=== PATIENT | female | born 1970 | race Caucasian/White ===

== ENCOUNTER 2019-02-07 21:09 | Inpatient (IN) | payer BC, MEDICAID, OTHER ==
[~2019-02-07] VITALS: Ht 167.6 cm; Wt 61.4 kg
[2019-02-07] MEDS ORDERED: HYDROcodone/acetaminophen 5mg/325mg tablet PO ONE (21:35)
[2019-02-07 21:50] LABS: URINE HCG NEGATIVE (NEG)
[2019-02-07 21:52] LABS: CLARITY,URINE CLOUDY (Clear); COLOR,URINE YELLOW (Yellow); GLUCOSE, URINE 100 mg/dl (Neg); KETONES,URINE NEGATIVE (Neg); LEUKOCYTE ESTERASE ,URINE MODERATE (Neg); NITRITES, URINE NEGATIVE (Neg); OCCULT BLOOD,URINE MODERATE (Neg); PROTEIN,URINE >=300 mg/dl (Neg); UROBILINOGEN,URINE 0.2 E.U/dL (0.2-1.0)
[2019-02-07 21:58] LABS: UA COLLECTION TYPE VOIDED
[2019-02-07 22:05] LABS: BACTERIA,URINE 3+ /HPF (Neg); MUCUS STRANDS MODERATE /LPF (Neg); SQUAMOUS EPITHELIAL CELL,UR MODERATE /LPF (FEW); WBC,URINE TNTC /HPF (0-4)
--- NOTE | 2019-02-07 22:12 | NUR ---
Patient resting on gurney comfortably
[2019-02-07 22:24] LABS: BASOPHILS % (AUTO) 0.1 % (0-1); EOSINOPHILS % (AUTO) 0.2 % (0-6); HEMATOCRIT 29.2 % (35.0-45.0); HEMOGLOBIN 9.6 g/dl (12.0-16.0); LYMPHOCYTES % (AUTO) 5.7 % (21-51); MEAN CORPUSCULAR HEMOGLOBIN 26.8 PG (27.0-31.0); MEAN CORPUSCULAR HGB CONC 32.8 g/dL (33.0-36.5); MEAN CORPUSCULAR VOLUME 81.8 FL (78-98); MEAN PLATELET VOLUME 9.5 FL (7.4-10.4); MONOCYTES # (AUTO) 0.7 X10'3 (0-0.9); MONOCYTES % (AUTO) 3.8 % (2-12); NEUTROPHILS # (AUTO) 15.5 X10'3 (1.8-7.7); NEUTROPHILS % (AUTO) 90.2 % (42-75); PLATELET COUNT 146 X10'3 (140-440); RED BLOOD COUNT 3.57 X10'6 (4.20-5.60); RED CELL DISTRIBUTION WIDTH 19.1 % (11.5-14.5); WHITE BLOOD COUNT 17.2 X10'3 (4.5-11.0)
[2019-02-07 22:33] LABS: ALANINE AMINOTRANSFERASE 26 U/L (12-78); ALBUMIN 2.7 G/DL (3.4-5.0); ALBUMIN/GLOBULIN RATIO 0.6 (1.1-1.5); ALKALINE PHOSPHATASE 112 IU/L (46-116); ANION GAP 12 (8-16); ASPARTATE AMINO TRANSFERASE 16 U/L (10-37); BILIRUBIN,TOTAL 0.3 MG/DL (0.1-1.0); BLOOD UREA NITROGEN 39 MG/DL (7-18); BUN/CREATININE RATIO 13.7 (6.6-38.0); CALCIUM 8.3 MG/DL (8.5-10.1); CHLORIDE 94 MMOL/L (99-107); CREATININE 2.84 MG/DL (0.40-0.90); GLUCOSE 159 MG/DL (70-104); LIPASE < 50 U/L (73-393); SODIUM 130 MMOL/L (135-145); TOTAL CARBON DIOXIDE 24.3 MMOL/L (24-32); eGFR 18 ML/MIN
[2019-02-07] MEDS ORDERED: ondansetron/PF 4mg/2ml inj IV ONE (22:35)
[2019-02-07] MEDS ORDERED: normal saline 1000ML IV soln IVB ONE (22:35)
[2019-02-07] MEDS ORDERED: potassium Cl 20 mEq SR tablet PO STA (22:42)
--- NOTE | 2019-02-07 23:11 | NUR ---
Patient reports pain back 10/10 abdominal, BP is low so unable to give morphine.
[2019-02-07 23:13] LABS: PLATELET ESTIMATE NORMAL
[2019-02-07 23:14] LABS: ANISOCYTOSIS 2+; ELLIPTOCYTES 1+; TARGET CELLS FEW
[2019-02-07] MEDS ORDERED: CefTRIAXone 2gm/D5W 50ml 50 ML IV ONE (23:15)
--- NOTE | 2019-02-07 23:38 | NUR ---
Patient to CT
[2019-02-07] MEDS ORDERED: normal saline 1000ML IV soln IV ONE (23:40)
[2019-02-07 23:47] LABS: URINE AMPHETAMINE SCREEN NEGATIVE (Neg); URINE BARBITUATE SCREEN NEGATIVE (Neg); URINE BENZODIAZEPINES SCREEN NEGATIVE (Neg); URINE CANNABINOID SCREEN NEGATIVE (Neg); URINE COCAINE SCREEN NEGATIVE (Neg); URINE METHADONE SCREEN NEGATIVE (Neg); URINE OPIATE SCREEN POSITIVE (Neg); URINE PHENCYCLIDINE SCREEN NEGATIVE (Neg)
[2019-02-07] MEDS: morphine 4 MG/ML inj SYRINge IV PRN (23:51)
--- NOTE | 2019-02-07 23:57 | NUR ---
Back from CT, lab at bedside for blood cultures
[2019-02-08] MEDS ORDERED: SERT100T PO (00:22)
[2019-02-08] MEDS ORDERED: LORA0.5T PO (00:22)
[2019-02-08] MEDS ORDERED: CLON0.2T PO (00:22)
[2019-02-08] MEDS: normal saline 1000ml 1,000 ML IV SCH ×3 (00:59→21:17)
[2019-02-08] MEDS ORDERED: mag hydrox/Alum hydrox/simeth 30ml oral suspension PO PRN (01:00)
[2019-02-08] MEDS ORDERED: magnesium Cl slow-release 64mg tablet PO PRN (01:00)
[2019-02-08] MEDS ORDERED: potassium CL 10mEq/100ml bag 100 ML IV PRN (01:00)
[2019-02-08] MEDS ORDERED: HYDROcodone/acetaminophen 5mg/325mg tablet PO PRN (01:00)
[2019-02-08] MEDS ORDERED: magnesium 4gm in 100ml NS 100 ML IV PRN (01:00)
[2019-02-08] MEDS ORDERED: potassium Cl 20 mEq SR tablet PO PRN ×2 (01:00)
[2019-02-08] MEDS ORDERED: morphine 2 MG/ML inj. syringe IV PRN ×2 (01:00)
[2019-02-08] MEDS ORDERED: magnesium hydroxide 30ml (MOM) UD suspension PO PRN (01:00)
[2019-02-08] MEDS ORDERED: acetaminophen 325mg tablet PO PRN (01:00)
[2019-02-08] MEDS ORDERED: magnesium 2GM in 50ml NS 50 ML IV PRN (01:00)
--- NOTE | 2019-02-08 01:53 | NUR ---
Patient in room . I have received report from CARSON Parker and had the opportunity to ask questions and assume patient care.
[2019-02-08 02:30] VITALS: BP 86/56
[2019-02-08] MEDS: acetaminophen 325mg tablet PO PRN (04:38)
--- NOTE | 2019-02-08 06:24 | NUR ---
Problems reprioritized. Patient report given, questions answered & plan of care reviewed with CARSON Orona.
--- NOTE | 2019-02-08 06:37 | NUR ---
Patient in room [facility]. I have received report from CARSON Donaldson and had the opportunity to ask questions and assume patient care.
[2019-02-08 06:38] LABS: BASOPHILS % (AUTO) 0.1 % (0-1); EOSINOPHILS % (AUTO) 0.7 % (0-6); HEMATOCRIT 26.4 % (35.0-45.0); HEMOGLOBIN 8.7 g/dl (12.0-16.0); LYMPHOCYTES # (AUTO) 0.4 X10'3 (1.1-4.8); MEAN CORPUSCULAR HEMOGLOBIN 27.2 PG (27.0-31.0); MEAN CORPUSCULAR VOLUME 82.4 FL (78-98); MEAN PLATELET VOLUME 9.6 FL (7.4-10.4); MONOCYTES # (AUTO) 0.3 X10'3 (0-0.9); MONOCYTES % (AUTO) 4.5 % (2-12); NEUTROPHILS # (AUTO) 4.9 X10'3 (1.8-7.7); NEUTROPHILS % (AUTO) 87.7 % (42-75); PLATELET COUNT 112 X10'3 (140-440); RED BLOOD COUNT 3.21 X10'6 (4.20-5.60); RED CELL DISTRIBUTION WIDTH 19.2 % (11.5-14.5); WHITE BLOOD COUNT 5.6 X10'3 (4.5-11.0)
[2019-02-08 06:48] LABS: ANION GAP 11 (8-16); BLOOD UREA NITROGEN 35 MG/DL (7-18); BUN/CREATININE RATIO 15.8 (6.6-38.0); CALCIUM 6.8 MG/DL (8.5-10.1); CHLORIDE 102 MMOL/L (99-107); CREATININE 2.22 MG/DL (0.40-0.90); GLUCOSE 88 MG/DL (70-104); SODIUM 134 MMOL/L (135-145); TOTAL CARBON DIOXIDE 21.1 MMOL/L (24-32); eGFR 24 ML/MIN
[2019-02-08 06:56] LABS: POTASSIUM 2.5 MMOL/L (3.5-5.1)
--- NOTE | 2019-02-08 06:58 | NUR ---
Paged Dr. Shields re critical K level. PAGER ID: [phone] MESSAGE: Eliseo Wagner in 340A. K of 2.5 this am. Will replace per protocol. Thanks! Tanya BYRD [phone]
[2019-02-08 07:56] LABS: ANISOCYTOSIS 2+; HYPOCHROMASIA 1+; PLATELET ESTIMATE DECREASED; TOTAL CELLS COUNTED 100
[2019-02-08] MEDS: K and/or MAG REPLACEMENT MC SCH (08:00)
[2019-02-08] MEDS: CefTRIAXone 2gm/D5W 50ml 50 ML IV SCH (08:12)
[2019-02-08 08:21] VITALS: BP 94/56
[2019-02-08] MEDS: heparin, porcine 5000 units/ml vial SQ SCH ×2 (08:24→20:28)
[2019-02-08] MEDS: lactobacillus rhamnosus 10,000 MMU CELLS/CAPSULE PO SCH ×4 (08:24→21:23)
[2019-02-08] MEDS: sertraline 50mg tablet PO SCH (08:26)
[2019-02-08] MEDS: morphine 4 MG/ML inj SYRINge IV PRN (08:27)
--- NOTE | 2019-02-08 11:48 | NUR ---
Paged Dr. Ratliff re pain management. PAGER ID: [phone] MESSAGE: Pt Keiko Wagner in 340A in severe pain, morphine not effective & b/p low. Can we try something else? Thanks! Tanya BYRD [phone]
[2019-02-08 12:00] VITALS: BP 92/72
[2019-02-08] MEDS ORDERED: NORMAL SALINE IV PRN (12:00)
[2019-02-08] MEDS ORDERED: SINCALIDE IV PRN (12:00)
--- NOTE | 2019-02-08 12:02 | NUR ---
Dr. Ratliff at bedside, new orders received for pain management, hida scan, IS, IV antibiotics.
[2019-02-08] MEDS: HYDROmorphone 1 mg/ml syringe IV PRN ×3 (12:20→23:21)
[2019-02-08] MEDS: metroNIDAZOLE-Flagyl 500mg/NS 100 ML IV SCH ×3 (12:43→23:17)
[2019-02-08] MEDS: levoFLOXACIN-Levaquin 750MG/D5 150 ML IV SCH (14:15)
[2019-02-08] MEDS: ondansetron/PF 4mg/2ml inj IV PRN (15:44)
--- NOTE | 2019-02-08 16:10 | NUR ---
Pt transported out of room to nuclear medicine.
--- NOTE | 2019-02-08 18:17 | NUR ---
Pt returned to floor.
--- NOTE | 2019-02-08 18:58 | NUR ---
Problems reprioritized. Patient report given, questions answered & plan of care reviewed with CARSON Donaldson.
--- NOTE | 2019-02-08 18:59 | NUR ---
Patient in room [facility]. I have received report from Kosta Martínez and had the opportunity to ask questions and assume patient care.
[2019-02-08 20:00] VITALS: BP 94/50
[2019-02-08] MEDS: proCHLORperazine 10 MG/2 ml inj IV PRN (20:27)
[2019-02-08] MEDS: potassium CL 10mEq/100ml bag 100 ML IV PRN ×2 (20:27→22:16)
[2019-02-08] MEDS: cloNIDine 0.1 mg tablet PO SCH ×3 (20:28→21:23)
[2019-02-09] VITALS: BP 95/59
[2019-02-09] MEDS: potassium CL 10mEq/100ml bag 100 ML IV PRN ×4 (00:24→03:55)
[2019-02-09] MEDS: normal saline 1000ml 1,000 ML IV SCH ×4 (00:50→20:50)
[2019-02-09] MEDS: HYDROmorphone 1 mg/ml syringe IV PRN ×4 (03:33→20:21)
--- NOTE | 2019-02-09 06:14 | NUR ---
Problems reprioritized. Patient report given, questions answered & plan of care reviewed with CARSON Mittal.
--- NOTE | 2019-02-09 06:30 | NUR ---
Patient in room [facility]. I have received report from CARSON Donaldson and had the opportunity to ask questions and assume patient care.
[2019-02-09] MEDS: proCHLORperazine 10 MG/2 ml inj IV PRN ×2 (07:52→20:11)
[2019-02-09 07:54] LABS: BASOPHILS % (AUTO) 0.1 % (0-1); EOSINOPHILS # (AUTO) 0.1 X10'3 (0-0.9); EOSINOPHILS % (AUTO) 0.7 % (0-6); HEMOGLOBIN 7.8 g/dl (12.0-16.0); LYMPHOCYTES # (AUTO) 0.6 X10'3 (1.1-4.8); LYMPHOCYTES % (AUTO) 3.5 % (21-51); MEAN CORPUSCULAR HEMOGLOBIN 26.8 PG (27.0-31.0); MEAN CORPUSCULAR HGB CONC 32.6 g/dL (33.0-36.5); MEAN CORPUSCULAR VOLUME 82.4 FL (78-98); MEAN PLATELET VOLUME 8.9 FL (7.4-10.4); MONOCYTES % (AUTO) 6.4 % (2-12); NEUTROPHILS # (AUTO) 14.3 X10'3 (1.8-7.7); NEUTROPHILS % (AUTO) 89.3 % (42-75); PLATELET COUNT 125 X10'3 (140-440); RED BLOOD COUNT 2.91 X10'6 (4.20-5.60)
[2019-02-09] MEDS: metroNIDAZOLE-Flagyl 500mg/NS 100 ML IV SCH ×2 (07:56→16:34)
[2019-02-09 08:00] VITALS: BP 90/35
[2019-02-09] MEDS: heparin, porcine 5000 units/ml vial SQ SCH ×2 (08:00→20:13)
[2019-02-09] MEDS: HYDROcodone/acetaminophen 10/325mg tab PO PRN (08:03)
[2019-02-09] MEDS: lactobacillus rhamnosus 10,000 MMU CELLS/CAPSULE PO SCH ×2 (08:03→21:39)
[2019-02-09] MEDS: sertraline 50mg tablet PO SCH (08:04)
[2019-02-09 08:08] LABS: ALBUMIN 1.9 G/DL (3.4-5.0); ANION GAP 11 (8-16); BLOOD UREA NITROGEN 23 MG/DL (7-18); BUN/CREATININE RATIO 16.5 (6.6-38.0); CALCIUM 7.3 MG/DL (8.5-10.1); CHLORIDE 107 MMOL/L (99-107); CREATININE 1.39 MG/DL (0.40-0.90); GLUCOSE 88 MG/DL (70-104); MAGNESIUM 1.8 MG/DL (1.5-2.4); POTASSIUM 4.4 MMOL/L (3.5-5.1); SODIUM 137 MMOL/L (135-145); TOTAL CARBON DIOXIDE 18.7 MMOL/L (24-32); eGFR 41 ML/MIN
[2019-02-09] MEDS: CefTRIAXone 2gm/D5W 50ml 50 ML IV SCH (09:15)
[2019-02-09] MEDS: levoFLOXACIN-Levaquin 750MG/D5 150 ML IV SCH (09:19)
[2019-02-09] MEDS: K and/or MAG REPLACEMENT MC SCH (09:44)
[2019-02-09 10:00] VITALS: BP 96/46
[2019-02-09 10:33] LABS: ANISOCYTOSIS 2+; PLATELET ESTIMATE DECREASED
[2019-02-09 10:36] LABS: TOTAL CELLS COUNTED 100
[2019-02-09 10:37] LABS: LARGE PLATELETS FEW
[2019-02-09 11:00] VITALS: BP 88/40
[2019-02-09 14:56] VITALS: BP 95/57
--- NOTE | 2019-02-09 17:08 | NUR ---
SBP sustaining 80-90's. Low grade fever of 100.6F this AM, other temps normal. Pt c/o weakness and abd pain. Dilaudid given x2 ad [place] given x1 with good result. Decreased appetite. Pt barely eats. Pt states she's beginning to feel better.
[2019-02-09 18:00] VITALS: BP 95/45
--- NOTE | 2019-02-09 18:18 | NUR ---
Problems reprioritized. Patient report given, questions answered & plan of care reviewed with CARSON Donaldson.
--- NOTE | 2019-02-09 18:19 | NUR ---
Patient in room [facility]. I have received report from CARSON Mittal and had the opportunity to ask questions and assume patient care.
[2019-02-09] MEDS: cloNIDine 0.1 mg tablet PO SCH (21:39)
[2019-02-10] MEDS: normal saline 1000ml 1,000 ML IV SCH
[2019-02-10 00:12] VITALS: BP 104/48
[2019-02-10] MEDS: HYDROmorphone 1 mg/ml syringe IV PRN ×2 (02:30→14:53)
[2019-02-10] MEDS: proCHLORperazine 10 MG/2 ml inj IV PRN (02:30)
[2019-02-10 04:55] LABS: BASOPHILS % (AUTO) 0.3 % (0-1); EOSINOPHILS % (AUTO) 0.2 % (0-6); HEMOGLOBIN 7.2 g/dl (12.0-16.0); LYMPHOCYTES # (AUTO) 0.7 X10'3 (1.1-4.8); LYMPHOCYTES % (AUTO) 5.4 % (21-51); MEAN CORPUSCULAR HEMOGLOBIN 27.2 PG (27.0-31.0); MEAN CORPUSCULAR HGB CONC 32.9 g/dL (33.0-36.5); MEAN CORPUSCULAR VOLUME 82.6 FL (78-98); MONOCYTES % (AUTO) 7.6 % (2-12); NEUTROPHILS % (AUTO) 86.5 % (42-75); PLATELET COUNT 147 X10'3 (140-440); RED BLOOD COUNT 2.66 X10'6 (4.20-5.60); RED CELL DISTRIBUTION WIDTH 19.7 % (11.5-14.5); WHITE BLOOD COUNT 12.7 X10'3 (4.5-11.0)
[2019-02-10 04:59] LABS: HEMATOCRIT 21.9 % (35.0-45.0)
[2019-02-10 05:35] LABS: ALBUMIN 1.7 G/DL (3.4-5.0); ANION GAP 13 (8-16); BLOOD UREA NITROGEN 14 MG/DL (7-18); CALCIUM 7.6 MG/DL (8.5-10.1); CHLORIDE 112 MMOL/L (99-107); GLUCOSE 91 MG/DL (70-104); POTASSIUM 3.8 MMOL/L (3.5-5.1); SODIUM 142 MMOL/L (135-145); TOTAL CARBON DIOXIDE 17.1 MMOL/L (24-32); eGFR 59 ML/MIN
--- NOTE | 2019-02-10 06:16 | NUR ---
Problems reprioritized. Patient report given, questions answered & plan of care reviewed with CARSON Jarvis.
--- NOTE | 2019-02-10 06:30 | NUR ---
Patient in room [facility]. I have received report from Mendoza BYRD and had the opportunity to ask questions and assume patient care.
[2019-02-10 07:25] VITALS: BP 102/43
[2019-02-10] MEDS: lactobacillus rhamnosus 10,000 MMU CELLS/CAPSULE PO SCH ×2 (08:40→20:48)
[2019-02-10] MEDS: sertraline 50mg tablet PO SCH (08:40)
[2019-02-10] MEDS: heparin, porcine 5000 units/ml vial SQ SCH (08:41)
[2019-02-10] MEDS: metroNIDAZOLE-Flagyl 500mg/NS 100 ML IV SCH ×4 (08:41→23:36)
[2019-02-10] MEDS: K and/or MAG REPLACEMENT MC SCH (08:45)
[2019-02-10 09:02] LABS: HEMOGLOBIN 7.2 g/dl (12.0-16.0); MEAN CORPUSCULAR HEMOGLOBIN 27.1 PG (27.0-31.0); MEAN CORPUSCULAR HGB CONC 32.9 g/dL (33.0-36.5); MEAN CORPUSCULAR VOLUME 82.5 FL (78-98); MEAN PLATELET VOLUME 8.6 FL (7.4-10.4); PLATELET COUNT 150 X10'3 (140-440); RED BLOOD COUNT 2.64 X10'6 (4.20-5.60); RED CELL DISTRIBUTION WIDTH 19.5 % (11.5-14.5); WHITE BLOOD COUNT 9.1 X10'3 (4.5-11.0)
[2019-02-10 09:08] LABS: HEMATOCRIT 21.8 % (35.0-45.0)
[2019-02-10] MEDS ORDERED: LEVO750T46 PO (09:18)
[2019-02-10] MEDS ORDERED: LACT1CAP26 PO (09:18)
[2019-02-10] MEDS ORDERED: METR-159 PO (09:18)
[2019-02-10 09:56] LABS: PLATELET ESTIMATE NORMAL; TOTAL CELLS COUNTED 100
[2019-02-10 09:57] LABS: ANISOCYTOSIS 2+
[2019-02-10 11:00] VITALS: BP 102/51
[2019-02-10 14:07] LABS: HEMATOCRIT 22.1 % (35.0-45.0); HEMOGLOBIN 7.2 g/dl (12.0-16.0); MEAN CORPUSCULAR HEMOGLOBIN 26.5 PG (27.0-31.0); MEAN CORPUSCULAR HGB CONC 32.7 g/dL (33.0-36.5); MEAN PLATELET VOLUME 8.1 FL (7.4-10.4); PLATELET COUNT 159 X10'3 (140-440); RED BLOOD COUNT 2.72 X10'6 (4.20-5.60); RED CELL DISTRIBUTION WIDTH 19.6 % (11.5-14.5); WHITE BLOOD COUNT 9.3 X10'3 (4.5-11.0)
[2019-02-10 14:59] LABS: FERRITIN 146 NG/ML (8-252)
[2019-02-10 15:39] LABS: % IRON SATURATION 10 % (11-46); IRON 13 UG/DL (49-151); TOTAL IRON BINDING CAPACITY 128 UG/DL (259-388)
[2019-02-10] MEDS ORDERED: VITC500T PO (16:47)
[2019-02-10] MEDS ORDERED: FERR325T28 PO (16:50)
[2019-02-10] MEDS: sodium ferric gluc complex inj 125 MG in normal saline 100ml IV soln 100 ML IV SCH (17:35)
--- NOTE | 2019-02-10 18:11 | NUR ---
Patient in room [facility]. I have received report from CARSON Jarvis and had the opportunity to ask questions and assume patient care.
[2019-02-10] MEDS: HYDROcodone/acetaminophen 10/325mg tab PO PRN ×2 (19:28→23:36)
[2019-02-10 20:00] VITALS: BP 116/67
[2019-02-10] MEDS: sodium bicarbonate 650mg tablet PO SCH (20:48)
[2019-02-10] MEDS: cloNIDine 0.1 mg tablet PO SCH (20:48)
[2019-02-11] VITALS: BP 104/53
[2019-02-11 05:03] LABS: BASOPHILS % (AUTO) 0.5 % (0-1); EOSINOPHILS # (AUTO) 0.1 X10'3 (0-0.9); EOSINOPHILS % (AUTO) 1.1 % (0-6); LYMPHOCYTES # (AUTO) 1.1 X10'3 (1.1-4.8); LYMPHOCYTES % (AUTO) 14.1 % (21-51); MEAN CORPUSCULAR HEMOGLOBIN 27.1 PG (27.0-31.0); MEAN CORPUSCULAR HGB CONC 33.4 g/dL (33.0-36.5); MEAN CORPUSCULAR VOLUME 81.3 FL (78-98); MEAN PLATELET VOLUME 8.6 FL (7.4-10.4); MONOCYTES % (AUTO) 12.9 % (2-12); NEUTROPHILS # (AUTO) 5.7 X10'3 (1.8-7.7); NEUTROPHILS % (AUTO) 71.4 % (42-75); PLATELET COUNT 171 X10'3 (140-440); RED BLOOD COUNT 2.69 X10'6 (4.20-5.60); RED CELL DISTRIBUTION WIDTH 19.1 % (11.5-14.5)
[2019-02-11 05:11] LABS: ALBUMIN 1.6 G/DL (3.4-5.0); ANION GAP 10 (8-16); BLOOD UREA NITROGEN 12 MG/DL (7-18); CHLORIDE 112 MMOL/L (99-107); GLUCOSE 130 MG/DL (70-104); MAGNESIUM 1.9 MG/DL (1.5-2.4); POTASSIUM 3.3 MMOL/L (3.5-5.1); SODIUM 143 MMOL/L (135-145); TOTAL CARBON DIOXIDE 20.9 MMOL/L (24-32)
[2019-02-11 05:27] LABS: BUN/CREATININE RATIO 15.4 (6.6-38.0); CREATININE 0.78 MG/DL (0.40-0.90); eGFR 79 ML/MIN
[2019-02-11 05:38] LABS: HEMATOCRIT 21.8 % (35.0-45.0)
[2019-02-11 05:39] LABS: HEMOGLOBIN 7.3 g/dl (12.0-16.0)
[2019-02-11 06:13] LABS: ANISOCYTOSIS 2+; PLATELET ESTIMATE NORMAL
[2019-02-11 06:14] LABS: POIKILOCYTOSIS FEW
--- NOTE | 2019-02-11 06:30 | NUR ---
Patient in room [facility]. I have received report from Ephraim BYRD and had the opportunity to ask questions and assume patient care.
--- NOTE | 2019-02-11 06:47 | NUR ---
Problems reprioritized. Patient report given, questions answered & plan of care reviewed with CARSON Jarvis.
[2019-02-11] MEDS: K and/or MAG REPLACEMENT MC SCH (08:00)
[2019-02-11] MEDS ORDERED: levoFLOXACIN-Levaquin 750MG/D5 150 ML IV SCH (08:00)
[2019-02-11 08:07] VITALS: BP 99/50
[2019-02-11] MEDS: HYDROcodone/acetaminophen 10/325mg tab PO PRN ×3 (08:25→22:43)
[2019-02-11] MEDS: lactobacillus rhamnosus 10,000 MMU CELLS/CAPSULE PO SCH ×2 (08:25→20:25)
[2019-02-11] MEDS: sertraline 50mg tablet PO SCH (08:25)
[2019-02-11] MEDS: sodium bicarbonate 650mg tablet PO SCH ×3 (08:25→20:26)
[2019-02-11] MEDS: metroNIDAZOLE-Flagyl 500mg/NS 100 ML IV SCH ×2 (08:26→15:22)
[2019-02-11] MEDS: sodium ferric gluc complex inj 125 MG in normal saline 100ml IV soln 100 ML IV SCH (09:34)
[2019-02-11 11:00] VITALS: BP 113/70
[2019-02-11] MEDS ORDERED: magnesium 4gm in 100ml NS 100 ML IV PRN (13:00)
[2019-02-11] MEDS ORDERED: potassium CL 10mEq/100ml bag 100 ML IV PRN (13:00)
[2019-02-11] MEDS ORDERED: magnesium Cl slow-release 64mg tablet PO PRN (13:00)
[2019-02-11] MEDS ORDERED: potassium Cl 20 mEq SR tablet PO PRN (13:00)
[2019-02-11] MEDS: potassium Cl 20 mEq SR tablet PO PRN ×2 (13:47→20:25)
[2019-02-11] MEDS: ondansetron/PF 4mg/2ml inj IV PRN ×2 (15:31→22:44)
[2019-02-11] MEDS: LORazepam 0.5 MG tablet PO PRN (17:56)
--- NOTE | 2019-02-11 18:00 | NUR ---
Patient in room [facility]. I have received report from Matheus BYRD and had the opportunity to ask questions and assume patient care.
--- NOTE | 2019-02-11 18:30 | NUR ---
Problems reprioritized. Patient report given, questions answered & plan of care reviewed with Chun BYRD.
[2019-02-11 20:00] VITALS: BP 94/46
[2019-02-11] MEDS: cloNIDine 0.1 mg tablet PO SCH (20:26)
[2019-02-12] VITALS: BP 91/48
[2019-02-12] MEDS: metroNIDAZOLE-Flagyl 500mg/NS 100 ML IV SCH ×2 (00:01→07:21)
[2019-02-12] MEDS: potassium Cl 20 mEq SR tablet PO PRN ×2 (02:21→07:20)
[2019-02-12] MEDS: acetaminophen 325mg tablet PO PRN (02:37)
[2019-02-12 05:13] LABS: BASOPHILS % (AUTO) 0.4 % (0-1); EOSINOPHILS # (AUTO) 0.1 X10'3 (0-0.9); EOSINOPHILS % (AUTO) 1.3 % (0-6); HEMATOCRIT 22.2 % (35.0-45.0); HEMOGLOBIN 7.4 g/dl (12.0-16.0); LYMPHOCYTES # (AUTO) 1.4 X10'3 (1.1-4.8); MEAN CORPUSCULAR HEMOGLOBIN 26.7 PG (27.0-31.0); MEAN CORPUSCULAR HGB CONC 33.4 g/dL (33.0-36.5); MEAN CORPUSCULAR VOLUME 79.9 FL (78-98); MEAN PLATELET VOLUME 8.1 FL (7.4-10.4); MONOCYTES # (AUTO) 0.9 X10'3 (0-0.9); MONOCYTES % (AUTO) 11.9 % (2-12); NEUTROPHILS # (AUTO) 5.2 X10'3 (1.8-7.7); NEUTROPHILS % (AUTO) 68.4 % (42-75); PLATELET COUNT 213 X10'3 (140-440); RED BLOOD COUNT 2.78 X10'6 (4.20-5.60); RED CELL DISTRIBUTION WIDTH 19.2 % (11.5-14.5); WHITE BLOOD COUNT 7.6 X10'3 (4.5-11.0)
[2019-02-12 05:18] LABS: ALBUMIN 1.6 G/DL (3.4-5.0); ANION GAP 7 (8-16); BLOOD UREA NITROGEN 7 MG/DL (7-18); BUN/CREATININE RATIO 9.3 (6.6-38.0); CALCIUM 7.6 MG/DL (8.5-10.1); CHLORIDE 110 MMOL/L (99-107); CREATININE 0.75 MG/DL (0.40-0.90); GLUCOSE 128 MG/DL (70-104); MAGNESIUM 1.4 MG/DL (1.5-2.4); POTASSIUM 3.4 MMOL/L (3.5-5.1); SODIUM 141 MMOL/L (135-145); TOTAL CARBON DIOXIDE 24.3 MMOL/L (24-32); eGFR 83 ML/MIN
--- NOTE | 2019-02-12 06:24 | NUR ---
Problems reprioritized. Patient report given, questions answered & plan of care reviewed with Matheus RN.
--- NOTE | 2019-02-12 06:28 | NUR ---
Patient in room [facility]. I have received report from Chun BYRD and had the opportunity to ask questions and assume patient care.
[2019-02-12 06:32] LABS: PLATELET ESTIMATE NORMAL
[2019-02-12 06:33] LABS: ANISOCYTOSIS 2+; HYPOCHROMASIA 2+; MICROCYTOSIS 1+
[2019-02-12 06:34] LABS: SCHISTOCYTES FEW
[2019-02-12] MEDS: sertraline 50mg tablet PO SCH (07:20)
[2019-02-12] MEDS: sodium bicarbonate 650mg tablet PO SCH (07:20)
[2019-02-12] MEDS: lactobacillus rhamnosus 10,000 MMU CELLS/CAPSULE PO SCH (07:21)
[2019-02-12] MEDS: LORazepam 0.5 MG tablet PO PRN (07:24)
[2019-02-12] MEDS: HYDROcodone/acetaminophen 10/325mg tab PO PRN (07:25)
[2019-02-12 08:00] VITALS: BP 90/50
[2019-02-12] MEDS: K and/or MAG REPLACEMENT MC SCH (08:00)
[2019-02-12] MEDS: sodium ferric gluc complex inj 125 MG in normal saline 100ml IV soln 100 ML IV SCH (09:09)
[2019-02-12] MEDS ORDERED: LEVO750T46 PO (09:38)
[2019-02-12] MEDS ORDERED: METR-159 PO (09:38)
[2019-02-12 11:00] VITALS: BP 93/41
--- NOTE | 2019-02-12 14:30 | NUR ---
PATIENT DISCHARGED TODAY, PATIENT EXPRESSED VERBAL UNDERSTANDING OF NEW MEDICAITONS PATIENT MEDICATIONS WERE DELIVERED BY CRAFT BEDSIDE. PATIENT SHOWED VERBAL UNDERSTANDING OF FOLLOW UP WITH PCP. PATIENT LEFT WITH ALL BELONGINGS. PATIENTS HAD TWO IV TAKEN OUT BOTH INTACT AND WHOLE UPON INSPECTION. PATIENT WAS TAKEN TO LOBBY VIA WHEEL CHAIR.
== END 2019-02-12 13:44 | disposition home or self-care (01) | DRG 720 ==
LOC: ER 21:09 → SUR 3N 02-08 01:53 → CMPBEDREQ 02-08 19:35
PROVIDERS: ADMIT Hospitalist; ATTEND Family Medicine
PROC: CF1YYZZ Planar Nuclear Medicine Imaging of Hepatobiliary System and Pancreas using Other Radionuclide (ICD-10-PCS; principal; 2019-02-08)
DX: A41.9 Sepsis, unspecified organism (principal); N17.0 Acute kidney failure with tubular necrosis; E87.2 Acidosis; N10 Acute pyelonephritis; B96.20 Unspecified Escherichia coli [E. coli] as the cause of diseases classified elsewhere; D64.9 Anemia, unspecified; F17.210 Nicotine dependence, cigarettes, uncomplicated; R65.20 Severe sepsis without septic shock; N92.1 Excessive and frequent menstruation with irregular cycle; F32.9 Major depressive disorder, single episode, unspecified; F41.9 Anxiety disorder, unspecified; Z79.899 Other long term (current) drug therapy; Z71.6 Tobacco abuse counseling
CPT/HCPCS: 36415; 74176; 76700; 78227; 80048; 80053; 80305; 81001; 81025; 82728; 83540; 83550; 83605; 83690; 83735; 84145; 85025; 85027; 85610; 87040; 87077; 87081; 87088; 87186; 96365; 96366; 96375; 99285; A9537; G0378; J0696; J0780; J1170; J1644; J1956; J2270; J2405; J2805; J2916; J3480; J3490; J7030

== ENCOUNTER 2019-03-21 00:47 | Inpatient (IN) | payer MEDICAID ==
[~2019-03-21] VITALS: Ht 172.7 cm; Wt 61.4 kg
[~2019-03-21 00:47] MED LIST: CLON0.2T PO; LACT1CAP26 PO; LEVO750T46 PO; LORA0.5T PO; METR-159 PO; SERT100T PO; VITC500T PO
[2019-03-21 01:27] LABS: BASOPHILS % (AUTO) 0.7 % (0-1); EOSINOPHILS # (AUTO) 0.1 X10'3 (0-0.9); EOSINOPHILS % (AUTO) 1.5 % (0-6); HEMATOCRIT 31.2 % (35.0-45.0); HEMOGLOBIN 10.6 g/dl (12.0-16.0); LYMPHOCYTES # (AUTO) 2.3 X10'3 (1.1-4.8); LYMPHOCYTES % (AUTO) 39.4 % (21-51); MEAN CORPUSCULAR HEMOGLOBIN 32.2 PG (27.0-31.0); MEAN CORPUSCULAR VOLUME 94.8 FL (78-98); MEAN PLATELET VOLUME 8.4 FL (7.4-10.4); MONOCYTES # (AUTO) 0.4 X10'3 (0-0.9); MONOCYTES % (AUTO) 6.3 % (2-12); NEUTROPHILS % (AUTO) 52.1 % (42-75); PLATELET COUNT 145 X10'3 (140-440); RED CELL DISTRIBUTION WIDTH 22.5 % (11.5-14.5); WHITE BLOOD COUNT 5.8 X10'3 (4.5-11.0)
[2019-03-21 01:36] LABS: PARTIAL THROMBOPLASTIN TIME 22 SECONDS (22-32)
[2019-03-21 01:44] LABS: ALANINE AMINOTRANSFERASE 40 U/L (12-78); ALBUMIN 3.3 G/DL (3.4-5.0); ALBUMIN/GLOBULIN RATIO 1.1 (1.1-1.5); ALKALINE PHOSPHATASE 75 IU/L (46-116); ANION GAP 12 (8-16); ASPARTATE AMINO TRANSFERASE 36 U/L (10-37); BILIRUBIN,TOTAL 0.3 MG/DL (0.1-1.0); BLOOD UREA NITROGEN 6 MG/DL (7-18); BUN/CREATININE RATIO 8.7 (6.6-38.0); CALCIUM 7.6 MG/DL (8.5-10.1); CHLORIDE 110 MMOL/L (99-107); CREATININE 0.69 MG/DL (0.40-0.90); GLUCOSE 101 MG/DL (70-104); POTASSIUM 4.1 MMOL/L (3.5-5.1); SODIUM 146 MMOL/L (135-145); TOTAL CARBON DIOXIDE 24.5 MMOL/L (24-32); TOTAL PROTEIN 6.4 G/DL (6.4-8.2); eGFR > 90 ML/MIN
[2019-03-21 01:52] LABS: ETHANOL 0.183 GM/DL (0.0-0.010); TROPONIN I < 0.04 NG/ML (0.0-0.05)
[2019-03-21] MEDS ORDERED: normal saline 1000ML IV soln IVB ONE (01:55)
[2019-03-21 02:11] LABS: ACETAMINOPHEN < 2.0 UG/ML (10-30)
--- NOTE | 2019-03-21 02:30 | NUR ---
PATIENT MORE ALERT, STATES THAT SHE TOOK A TOTAL OF 10 CLONIDINE TABLETS AND DRANK "A LOT OF ALCOHOL" PATIENT STATES THAT HER INTENT WAS TO "GET SOME SLEEP" SHE DENIES THAT THAT THE INTENT WAS TO HARM HERSELF
[2019-03-21 03:04] LABS: URINE AMPHETAMINE SCREEN NEGATIVE (Neg); URINE BARBITUATE SCREEN NEGATIVE (Neg); URINE BENZODIAZEPINES SCREEN NEGATIVE (Neg); URINE CANNABINOID SCREEN NEGATIVE (Neg); URINE COCAINE SCREEN NEGATIVE (Neg); URINE METHADONE SCREEN NEGATIVE (Neg); URINE OPIATE SCREEN NEGATIVE (Neg); URINE PHENCYCLIDINE SCREEN NEGATIVE (Neg)
[2019-03-21 03:08] LABS: CLARITY,URINE CLEAR (Clear); COLOR,URINE YELLOW (Yellow); GLUCOSE, URINE NEGATIVE (Neg); KETONES,URINE NEGATIVE (Neg); LEUKOCYTE ESTERASE ,URINE NEGATIVE (Neg); NITRITES, URINE NEGATIVE (Neg); OCCULT BLOOD,URINE NEGATIVE (Neg); PROTEIN,URINE NEGATIVE (Neg); UROBILINOGEN,URINE 0.2 E.U/dL (0.2-1.0)
[2019-03-21 03:09] LABS: UA COLLECTION TYPE STRAIGHT CATH
[2019-03-21 03:12] LABS: ANISOCYTOSIS 3+; PLATELET ESTIMATE NORMAL
[2019-03-21 03:13] LABS: POLYCHROMASIA FEW; TARGET CELLS 1+
[2019-03-21] MEDS ORDERED: CETI10TA18 PO (03:25)
[2019-03-21] MEDS ORDERED: FERR325T28 PO (03:25)
[2019-03-21] MEDS ORDERED: ZOLP5TAB8 PO (03:25)
[2019-03-21] MEDS ORDERED: CLON0.1T20 PO (03:25)
[2019-03-21] MEDS ORDERED: ONDA4TAB6 PO (03:25)
[2019-03-21] MEDS ORDERED: ondansetron/PF 4mg/2ml inj IV PRN (03:40)
[2019-03-21] MEDS: normal saline 1000ml 1,000 ML IV SCH ×3 (03:47→22:04)
--- NOTE | 2019-03-21 05:00 | NUR ---
Received report from Vishnu BYRD, pt ambulated to her hospital bed with the help of staff, pt is slightly unsteady on her feet due to grogginess. pt skin is CDI no open areas noted, sitter at bedside, IV fluids running@100mL/hr, VS taken
[2019-03-21 05:02] VITALS: BP 97/54
--- NOTE | 2019-03-21 06:26 | NUR ---
Gave report to Gerard BYRD pt is resting on RA, NS running@100mL/hr, sitter at bedside,
--- NOTE | 2019-03-21 06:36 | NUR ---
Patient in room [facility]. I have received report from Chaparrita BYRD and had the opportunity to ask questions and assume patient care.
[2019-03-21 08:00] VITALS: BP 94/37
[2019-03-21] MEDS: heparin, porcine 5000 units/ml vial SQ SCH ×2 (08:05→19:50)
[2019-03-21 09:57] VITALS: BP 124/49
--- NOTE | 2019-03-21 10:00 | NUR ---
Belongings are located in [facility].
[2019-03-21 11:00] VITALS: BP 107/59
--- NOTE | 2019-03-21 12:15 | NUR ---
Poison control phoned, patient has been removed from their observations.
[2019-03-21 12:50] LABS: HCG SERUM QL NEGATIVE
--- NOTE | 2019-03-21 15:44 | NUR ---
Packet sent to [facility] by fax.
[2019-03-21 18:15] VITALS: BP 126/62
--- NOTE | 2019-03-21 18:20 | NUR ---
Problems reprioritized. Patient report given, questions answered & plan of care reviewed with Portia BYRD.
--- NOTE | 2019-03-21 18:22 | NUR ---
Patient in room [facility]. I have received report from CARSON Newman and had the opportunity to ask questions and assume patient care.
--- NOTE | 2019-03-21 18:30 | NUR ---
Patient in room [facility]. I have received report from EULALIO and had the opportunity to ask questions and assume patient care. ASSUMED CARE OF PT WITH EULALIO Coleman RN Addendum: 03/21/19 at 2132 by Portia Carbajal RN 1830: SITTER AT THE BEDSIDE.
[2019-03-21] MEDS: acetaminophen 325mg tablet PO PRN (19:49)
[2019-03-21] MEDS ORDERED: Melatonin 3mg tablet PO SCH (21:00)
[2019-03-22 00:38] VITALS: BP 112/56
[2019-03-22 05:09] LABS: BASOPHILS % (AUTO) 0.9 % (0-1); EOSINOPHILS # (AUTO) 0.2 X10'3 (0-0.9); EOSINOPHILS % (AUTO) 5.2 % (0-6); HEMATOCRIT 34.7 % (35.0-45.0); HEMOGLOBIN 11.4 g/dl (12.0-16.0); LYMPHOCYTES # (AUTO) 1.9 X10'3 (1.1-4.8); LYMPHOCYTES % (AUTO) 55.4 % (21-51); MEAN CORPUSCULAR HEMOGLOBIN 31.8 PG (27.0-31.0); MEAN CORPUSCULAR VOLUME 96.2 FL (78-98); MEAN PLATELET VOLUME 8.1 FL (7.4-10.4); MONOCYTES # (AUTO) 0.2 X10'3 (0-0.9); MONOCYTES % (AUTO) 5.5 % (2-12); NEUTROPHILS # (AUTO) 1.2 X10'3 (1.8-7.7); PLATELET COUNT 136 X10'3 (140-440); RED BLOOD COUNT 3.61 X10'6 (4.20-5.60); RED CELL DISTRIBUTION WIDTH 22.9 % (11.5-14.5); WHITE BLOOD COUNT 3.5 X10'3 (4.5-11.0)
[2019-03-22 06:02] LABS: ALANINE AMINOTRANSFERASE 38 U/L (12-78); ALBUMIN 3.1 G/DL (3.4-5.0); ALBUMIN/GLOBULIN RATIO 0.9 (1.1-1.5); ALKALINE PHOSPHATASE 81 IU/L (46-116); ANION GAP 12 (8-16); ASPARTATE AMINO TRANSFERASE 35 U/L (10-37); BILIRUBIN,TOTAL 0.5 MG/DL (0.1-1.0); BLOOD UREA NITROGEN 3 MG/DL (7-18); BUN/CREATININE RATIO 5.6 (6.6-38.0); CALCIUM 7.8 MG/DL (8.5-10.1); CHLORIDE 109 MMOL/L (99-107); CREATININE 0.54 MG/DL (0.40-0.90); GLUCOSE 79 MG/DL (70-104); POTASSIUM 3.3 MMOL/L (3.5-5.1); SODIUM 143 MMOL/L (135-145); TOTAL CARBON DIOXIDE 22.2 MMOL/L (24-32); TOTAL PROTEIN 6.5 G/DL (6.4-8.2); eGFR > 90 ML/MIN
--- NOTE | 2019-03-22 06:26 | NUR ---
Problems reprioritized. Patient report given, questions answered & plan of care reviewed with CARSON Newman.
--- NOTE | 2019-03-22 06:47 | NUR ---
I have received report from Anahi BYRD and Rhiannon RN and had the opportunity to ask questions and assume patient care.
--- NOTE | 2019-03-22 06:55 | NUR ---
Patient in room [facility]. I have received report from CARSON Pearce RN and had the opportunity to ask questions and assume patient care.
[2019-03-22] MEDS ORDERED: potassium Cl 20 mEq SR tablet PO PRN ×2 (07:40)
[2019-03-22] MEDS ORDERED: magnesium Cl slow-release 64mg tablet PO PRN (07:40)
[2019-03-22] MEDS ORDERED: potassium CL 10mEq/100ml bag 100 ML IV PRN (07:40)
[2019-03-22] MEDS: acetaminophen 325mg tablet PO PRN (08:51)
[2019-03-22 08:52] VITALS: BP 111/76
[2019-03-22] MEDS: heparin, porcine 5000 units/ml vial SQ SCH (08:53)
[2019-03-22 08:58] LABS: MAGNESIUM 1.6 MG/DL (1.5-2.4)
[2019-03-22] MEDS: normal saline 1000ml 1,000 ML IV SCH (09:39)
[2019-03-22] MEDS ORDERED: LORazepam 0.5 MG tablet PO ONE (11:10)
[2019-03-22] MEDS ORDERED: LORA-268 MT (11:14)
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
--- NOTE | 2019-03-22 13:58 | NUR ---
Nurse documentation during orientation: I have reviewed and agree with all interventions, assessments performed and documented by Blanca BYRD .
--- NOTE | 2019-03-22 15:19 | NUR ---
Patient discharged to ER for SART, patient stable and appropriate for discharge, all belongings sent with patient, tele taken off, IVs taken out, prescription for Ativan provided and given to patient to be filled at patient's pharmacy, no current SI, education completed
== END 2019-03-22 14:34 | disposition home or self-care (01) | DRG 812 ==
LOC: ER 00:48 → ED HOLD 03:39 → SUR 3N 04:37
PROVIDERS: ADMIT Internal Medicine; ATTEND Internal Medicine
DX: T46.5X1A Poisoning by other antihypertensive drugs, accidental (unintentional), initial encounter (principal); I95.9 Hypotension, unspecified; F32.9 Major depressive disorder, single episode, unspecified; Z79.899 Other long term (current) drug therapy; Y92.89 Other specified places as the place of occurrence of the external cause
CPT/HCPCS: 36415; 70450; 71045; 80053; 80305; 80320; 80329; 81003; 83735; 84443; 84484; 84703; 85025; 85610; 85730; 87081; 93005; 99285; G0378; J1644; J7030

== ENCOUNTER 2019-03-22 14:33 | Emergency (ER) | payer MEDICAID ==
[~2019-03-22] VITALS: Ht 167.6 cm; Wt 152.0 kg
[~2019-03-22 14:33] MED LIST changes: +CETI10TA18 PO; +CLON0.1T2 PO; -CLON0.2T PO; +FERR325T28 PO; -LACT1CAP26 PO; -LEVO750T46 PO; +LORA-268 MT; -LORA0.5T PO; -METR-159 PO; +ONDA4TAB6 PO; -SERT100T PO; +ZOLP5TAB8 PO
[2019-03-22 16:01] LABS: URINE HCG NEGATIVE (NEG)
[2019-03-22] MEDS ORDERED: azithromycin 250mg tablet PO ONE (17:15)
[2019-03-22] MEDS ORDERED: CefTRIAXone 250MG IM Kit w/LIDOcaine IM ONE (17:15)
[2019-03-22 19:45] VITALS: BP 152/86
== END 2019-03-22 17:20 | disposition home or self-care (01) ==
LOC: EEVIPCON 14:34 → ER 14:34
DX: T76.21XA Adult sexual abuse, suspected, initial encounter (principal); F32.9 Major depressive disorder, single episode, unspecified; R41.82 Altered mental status, unspecified; F10.10 Alcohol abuse, uncomplicated; Z79.899 Other long term (current) drug therapy; Y90.9 Presence of alcohol in blood, level not specified
CPT/HCPCS: 81025; 96372; 99283; 99284

== ENCOUNTER 2019-04-25 23:28 | Emergency (ER) | payer MEDICAID ==
[~2019-04-25] VITALS: Ht 167.6 cm; Wt 59.0 kg
--- NOTE | 2019-04-25 23:30 | NUR ---
The patient ambulated to bed 21 directly. She was brought in by SO. She is waiting MD to see her.
--- NOTE | 2019-04-26 00:11 | NUR ---
Pt's belongings documented, placed in ambulance bay lockers. Pt in green scrubs, fresh pitcher of water provided for pt. UA sent to lab.
--- NOTE | 2019-04-26 01:11 | NUR ---
The patient has laid down on her right side in attempt to sleep.
[2019-04-26 01:15] LABS: URINE HCG NEGATIVE (NEG)
[2019-04-26] MEDS ORDERED: zolpidem 5mg tablet PO PRN ×2 (01:15→02:00)
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
[2019-04-26 01:33] LABS: URINE AMPHETAMINE SCREEN NEGATIVE (Neg); URINE BARBITUATE SCREEN NEGATIVE (Neg); URINE BENZODIAZEPINES SCREEN NEGATIVE (Neg); URINE CANNABINOID SCREEN NEGATIVE (Neg); URINE COCAINE SCREEN NEGATIVE (Neg); URINE METHADONE SCREEN NEGATIVE (Neg); URINE OPIATE SCREEN NEGATIVE (Neg); URINE PHENCYCLIDINE SCREEN NEGATIVE (Neg)
[2019-04-26 02:23] LABS: BASOPHILS # (AUTO) 0.1 X10'3 (0-0.2); BASOPHILS % (AUTO) 1.4 % (0-1); EOSINOPHILS # (AUTO) 0.2 X10'3 (0-0.9); EOSINOPHILS % (AUTO) 3.8 % (0-6); HEMATOCRIT 32.8 % (35.0-45.0); HEMOGLOBIN 11.1 g/dl (12.0-16.0); LYMPHOCYTES # (AUTO) 1.9 X10'3 (1.1-4.8); LYMPHOCYTES % (AUTO) 39.3 % (21-51); MEAN CORPUSCULAR HEMOGLOBIN 34.9 PG (27.0-31.0); MEAN CORPUSCULAR VOLUME 102.8 FL (78-98); MEAN PLATELET VOLUME 8.1 FL (7.4-10.4); MONOCYTES # (AUTO) 0.5 X10'3 (0-0.9); MONOCYTES % (AUTO) 9.2 % (2-12); NEUTROPHILS # (AUTO) 2.3 X10'3 (1.8-7.7); NEUTROPHILS % (AUTO) 46.3 % (42-75); PLATELET COUNT 238 X10'3 (140-440); RED BLOOD COUNT 3.19 X10'6 (4.20-5.60); WHITE BLOOD COUNT 4.9 X10'3 (4.5-11.0)
[2019-04-26 02:35] LABS: ALANINE AMINOTRANSFERASE 29 U/L (12-78); ALBUMIN 3.2 G/DL (3.4-5.0); ALBUMIN/GLOBULIN RATIO 0.9 (1.1-1.5); ALKALINE PHOSPHATASE 89 IU/L (46-116); ANION GAP 13 (8-16); ASPARTATE AMINO TRANSFERASE 32 U/L (10-37); BILIRUBIN,TOTAL 0.1 MG/DL (0.1-1.0); BLOOD UREA NITROGEN 14 MG/DL (7-18); BUN/CREATININE RATIO 19.2 (6.6-38.0); CALCIUM 8.3 MG/DL (8.5-10.1); CHLORIDE 109 MMOL/L (99-107); CREATININE 0.73 MG/DL (0.40-0.90); ETHANOL 0.115 GM/DL (0.0-0.010); GLUCOSE 96 MG/DL (70-104); POTASSIUM 3.2 MMOL/L (3.5-5.1); SODIUM 142 MMOL/L (135-145); TOTAL CARBON DIOXIDE 20.1 MMOL/L (24-32); TOTAL PROTEIN 6.9 G/DL (6.4-8.2); eGFR 85 ML/MIN
[2019-04-26] MEDS ORDERED: potassium Cl 20 mEq SR tablet PO STA (02:53)
--- NOTE | 2019-04-26 03:01 | NUR ---
PT LYING ON THE BED ON HER LEFT SIDE WITH BLANKETS COVERING TO HER SHOUDERS. K IS 3.2. GIVEN KDUR 40 MEQ X1 NOW. PT REPORTS A HX OF ISSUES WITH LOW K AND HAS TAKEN POTASSIUM PILLS IN PAST. PT IS POLITE AN COOPERATIVE WHEN AWAKENED TO TAKE THIS MED. CASTRO AND RN WITHIN VIEW OF PT AAT.
--- NOTE | 2019-04-26 03:14 | NUR ---
Packet faxed to [facility]. Unable to confirm receipt of packet as [id number] hours.
--- NOTE | 2019-04-26 04:07 | NUR ---
The patient is sleeping on her left side with covers up to her chin.
[2019-04-26 05:30] VITALS: BP 115/70
--- NOTE | 2019-04-26 06:39 | NUR ---
Patient sleeping on left side. No restlessness observed. Continue to monitor.
[2019-04-26] MEDS ORDERED: ferrous sulfate 325mg tablet PO SCH (08:00)
[2019-04-26] MEDS ORDERED: ascorbic acid 500mg tablet PO SCH (08:00)
[2019-04-26] MEDS ORDERED: cetirizine 10mg tablet PO SCH (08:00)
[2019-04-26] MEDS ORDERED: cloNIDine 0.1 mg tablet PO SCH ×2 (21:00)
== END 2019-04-26 15:50 | disposition home or self-care (01) ==
LOC: ER 23:28
DX: S60.812A Abrasion of left wrist, initial encounter (principal); S60.811A Abrasion of right wrist, initial encounter; F32.9 Major depressive disorder, single episode, unspecified; R45.851 Suicidal ideations; E87.6 Hypokalemia; F41.0 Panic disorder [episodic paroxysmal anxiety]; F17.200 Nicotine dependence, unspecified, uncomplicated; Z79.899 Other long term (current) drug therapy; X78.9XXA Intentional self-harm by unspecified sharp object, initial encounter; Y93.89 Activity, other specified; Y92.89 Other specified places as the place of occurrence of the external cause; Y99.9 Unspecified external cause status
CPT/HCPCS: 36415; 80053; 80305; 80320; 81001; 81025; 84443; 85025; 99285

== ENCOUNTER 2019-07-02 17:36 | Emergency (ER) | payer MEDICAID ==
[~2019-07-02] VITALS: Ht 167.6 cm; Wt 61.4 kg
[~2019-07-02 17:36] MED LIST changes: +LIDOcaine 1% W/epiNEPHrine 1:100,000 20ml vial ONE; -ONDA4TAB6 PO
[2019-07-02 18:23] LABS: URINE HCG NEGATIVE (NEG)
[2019-07-02 18:26] LABS: CLARITY,URINE CLEAR (Clear); COLOR,URINE STRAW (Yellow); GLUCOSE, URINE NEGATIVE (Neg); KETONES,URINE NEGATIVE (Neg); LEUKOCYTE ESTERASE ,URINE NEGATIVE (Neg); NITRITES, URINE NEGATIVE (Neg); OCCULT BLOOD,URINE MODERATE (Neg); PROTEIN,URINE NEGATIVE (Neg); UROBILINOGEN,URINE 0.2 E.U/dL (0.2-1.0)
[2019-07-02 18:32] LABS: URINE AMPHETAMINE SCREEN NEGATIVE (Neg); URINE BARBITUATE SCREEN NEGATIVE (Neg); URINE BENZODIAZEPINES SCREEN POSITIVE (Neg); URINE CANNABINOID SCREEN NEGATIVE (Neg); URINE COCAINE SCREEN NEGATIVE (Neg); URINE METHADONE SCREEN NEGATIVE (Neg); URINE OPIATE SCREEN NEGATIVE (Neg); URINE PHENCYCLIDINE SCREEN NEGATIVE (Neg)
[2019-07-02 18:34] LABS: UA COLLECTION TYPE CLN CATCH MIDSTREAM
[2019-07-02 18:44] LABS: BACTERIA,URINE FEW /HPF (Neg); MUCUS STRANDS NONE SEEN /LPF (Neg); RBC,URINE 0-2 /HPF (0-2); SQUAMOUS EPITHELIAL CELL,UR FEW /LPF (FEW); WBC,URINE 0-4 /HPF (0-4)
[2019-07-02 19:04] LABS: BASOPHILS # (AUTO) 0.1 X10'3 (0-0.2); BASOPHILS % (AUTO) 1.1 % (0-1); EOSINOPHILS # (AUTO) 0.4 X10'3 (0-0.9); HEMATOCRIT 38.6 % (35.0-45.0); LYMPHOCYTES # (AUTO) 2.9 X10'3 (1.1-4.8); MEAN CORPUSCULAR HEMOGLOBIN 31.8 PG (27.0-31.0); MEAN CORPUSCULAR HGB CONC 33.7 g/dL (33.0-36.5); MEAN CORPUSCULAR VOLUME 94.2 FL (78-98); MEAN PLATELET VOLUME 8.1 FL (7.4-10.4); MONOCYTES # (AUTO) 0.2 X10'3 (0-0.9); MONOCYTES % (AUTO) 3.6 % (2-12); NEUTROPHILS # (AUTO) 2.4 X10'3 (1.8-7.7); NEUTROPHILS % (AUTO) 40.3 % (42-75); PLATELET COUNT 272 X10'3 (140-440); RED CELL DISTRIBUTION WIDTH 13.5 % (11.5-14.5)
[2019-07-02 19:12] LABS: ALANINE AMINOTRANSFERASE 22 U/L (12-78); ALBUMIN/GLOBULIN RATIO 1.1 (1.1-1.5); ALKALINE PHOSPHATASE 93 IU/L (46-116); ANION GAP 5 (8-16); ASPARTATE AMINO TRANSFERASE 19 U/L (10-37); BILIRUBIN,TOTAL 0.1 MG/DL (0.1-1.0); BLOOD UREA NITROGEN 12 MG/DL (7-18); BUN/CREATININE RATIO 17.4 (6.6-38.0); CALCIUM 8.7 MG/DL (8.5-10.1); CHLORIDE 113 MMOL/L (99-107); CREATININE 0.69 MG/DL (0.40-0.90); GLUCOSE 89 MG/DL (70-104); POTASSIUM 3.9 MMOL/L (3.5-5.1); SODIUM 149 MMOL/L (135-145); TOTAL CARBON DIOXIDE 30.9 MMOL/L (24-32); TOTAL PROTEIN 7.5 G/DL (6.4-8.2); eGFR > 90 ML/MIN
--- NOTE | 2019-07-02 19:19 | NUR ---
Patient's home medications taken to pharmacy
[2019-07-02 19:22] LABS: ETHANOL 0.234 GM/DL (0.0-0.010)
[2019-07-02 19:23] LABS: ACETAMINOPHEN < 2.0 UG/ML (10-30)
[2019-07-02] MEDS ORDERED: LORazepam 1 MG tablet PO ONE (21:20)
[2019-07-02] MEDS ORDERED: hydrOXYzine 25 MG tablet PO ONE (21:20)
[2019-07-02] MEDS ORDERED: OLANZapine **IM** 10 mg inj. IM ONE (21:35)
--- NOTE | 2019-07-03 09:30 | NUR ---
spoke to patient regarding her alcohol consumption. patient states that she is a regular drinker "but only for periods of times" despite the fact that the patient has been in rehab previously and used to attend AA. patient does not have a sponsor and has not worked the 12 steps of AA. 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 patient axox4, churchill appears slightly withdrawn. 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
--- NOTE | 2019-07-03 10:43 | NUR ---
phone report to lj joshua. lj is aware the medication reconciliation is not done
--- NOTE | 2019-07-03 10:45 | NUR ---
JEFFERSON Mcwilliams in room with patient
--- NOTE | 2019-07-03 11:06 | NUR ---
Patient arrived to overflow
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
[2019-07-03] MEDS ORDERED: LORA-269 PO (11:26)
--- NOTE | 2019-07-03 12:00 | NUR ---
Resting in bed no distress
--- NOTE | 2019-07-03 13:00 | NUR ---
Resting in bed no distress
--- NOTE | 2019-07-03 14:00 | NUR ---
Resting in bed no distress
[2019-07-03] MEDS ORDERED: zolpidem 5mg tablet PO PRN (14:35)
[2019-07-03] MEDS ORDERED: LORazepam 1 MG tablet PO PRN (14:35)
--- NOTE | 2019-07-03 15:00 | NUR ---
Resting in bed no distress
--- NOTE | 2019-07-03 16:00 | NUR ---
Resting in bed no distress
--- NOTE | 2019-07-03 16:52 | NUR ---
Laying down in bed
--- NOTE | 2019-07-03 19:30 | NUR ---
rcvd report at change of shift. pt resting in bed comfortably awaiting dinner. Pt states she is here for s/i, denies current s/i. Pt has some "soreness" in her wrists where she cut her wrists and requested dressing change. Dressing change tolerated well. Stiches are visi Addendum: 07/03/19 at 1931 by MARY ELLEN sutures intact, no redness, drainage noted, no s/s of infection.
[2019-07-03] MEDS ORDERED: cloNIDine 0.1 mg tablet PO SCH (21:00)
--- NOTE | 2019-07-03 21:45 | NUR ---
rcvd call from Bobo at [facility], gave nurse to nurse. Pt is accepted and they will arrange for transportation around 4pm tommorow. Pt has been resting comfortably this shift, she is med compliant, c/o some anxiety and h/a. Prns given
[2019-07-03] MEDS ORDERED: acetaminophen 325mg tablet PO PRN (21:55)
--- NOTE | 2019-07-04 00:48 | NUR ---
Pt is laying on her right side, rr even and unlabored no s/s distress
--- NOTE | 2019-07-04 02:49 | NUR ---
pt laying on her left side asleep. RR even and unlabored no s/s distress
--- NOTE | 2019-07-04 04:58 | NUR ---
pt laying on her right side asleep, rr even and unlabored
[2019-07-04 05:23] VITALS: BP 122/76
[2019-07-04] MEDS ORDERED: ascorbic acid 500mg tablet PO SCH (08:00)
[2019-07-04] MEDS ORDERED: ferrous sulfate 325mg tablet PO SCH (08:00)
[2019-07-04] MEDS ORDERED: cetirizine 10mg tablet PO SCH (08:00)
--- NOTE | 2019-07-04 08:36 | NUR ---
SAFETY BREAKFAST TRAY DELIVERED TO BEDSIDE PT INFORMED THAT SHE WILL BE GOING TO [facility] THIS AFTERNOON AT APPROX 1600
--- NOTE | 2019-07-04 09:05 | NUR ---
ASSUMED CARE OF PATIENT. RECEIVED REPORT FOR KERI BYRD
--- NOTE | 2019-07-04 10:00 | NUR ---
pt is resting at this time
--- NOTE | 2019-07-04 11:00 | NUR ---
pt is resting at this time
--- NOTE | 2019-07-04 12:00 | NUR ---
pt is resting at this time
--- NOTE | 2019-07-04 12:05 | NUR ---
Melinda from the [facility] office called to report that pt has been accepted at [facility] by Dr Rodrigues. head up operator time is 1400.
--- NOTE | 2019-07-04 12:58 | NUR ---
pt is resting at this time
--- NOTE | 2019-07-04 14:05 | NUR ---
ortiz campos, gave pt. clothes, so she can change into them, [facility] picked up rx of valium from pharmacy that will be given to the local intermodal truck driver when he arrives.
== END 2019-07-04 14:18 ==
LOC: ER 17:37
DX: S61.512A Laceration without foreign body of left wrist, initial encounter (principal); S61.511A Laceration without foreign body of right wrist, initial encounter; R45.851 Suicidal ideations; F32.9 Major depressive disorder, single episode, unspecified; F41.0 Panic disorder [episodic paroxysmal anxiety]; Z79.899 Other long term (current) drug therapy; X83.8XXA Intentional self-harm by other specified means, initial encounter; Y93.89 Activity, other specified; Y92.89 Other specified places as the place of occurrence of the external cause; Y99.8 Other external cause status
CPT/HCPCS: 12002; 36415; 80053; 80305; 80320; 80329; 81001; 81025; 84443; 85025; 96372; 99285; J3490; Z7610

== ENCOUNTER 2021-10-29 17:49 | Emergency (ER) | payer MEDICAID ==
[~2021-10-29] VITALS: Ht 167.6 cm; Wt 62.0 kg
[~2021-10-29 17:49] MED LIST changes: -CETI10TA18 PO; +CETI10TA19 PO; -LIDOcaine 1% W/epiNEPHrine 1:100,000 20ml vial ONE; -LORA-268 MT; +LORA-269 PO
--- NOTE | 2021-10-29 18:25 | NUR ---
Per Dr. Rushing no need to contact poison control.
[2021-10-29] MEDS ORDERED: normal saline 1000ML IV soln IVB ONE (18:30)
[2021-10-29 19:05] LABS: BASOPHILS # (AUTO) 0.1 X10'3 (0-0.2); BASOPHILS % (AUTO) 1.8 % (0-1); EOSINOPHILS # (AUTO) 0.1 X10'3 (0-0.9); EOSINOPHILS % (AUTO) 3.9 % (0-6); HEMATOCRIT 33.1 % (35.0-45.0); HEMOGLOBIN 10.6 g/dl (12.0-16.0); LYMPHOCYTES # (AUTO) 1.1 X10'3 (1.1-4.8); LYMPHOCYTES % (AUTO) 30.9 % (21-51); MEAN CORPUSCULAR HEMOGLOBIN 27.3 PG (27.0-31.0); MEAN CORPUSCULAR VOLUME 85.4 FL (78-98); MEAN PLATELET VOLUME 7.5 FL (7.4-10.4); MONOCYTES # (AUTO) 0.2 X10'3 (0-0.9); MONOCYTES % (AUTO) 5.7 % (2-12); NEUTROPHILS # (AUTO) 2.1 X10'3 (1.8-7.7); NEUTROPHILS % (AUTO) 57.7 % (42-75); PLATELET COUNT 259 X10'3 (140-440); RED BLOOD COUNT 3.88 X10'6 (4.20-5.60); RED CELL DISTRIBUTION WIDTH 19.7 % (11.5-14.5); WHITE BLOOD COUNT 3.6 X10'3 (4.5-11.0)
[2021-10-29 19:20] LABS: ALANINE AMINOTRANSFERASE 31 U/L (12-78); ALBUMIN 3.9 G/DL (3.4-5.0); ALKALINE PHOSPHATASE 75 IU/L (46-116); ANION GAP 12 (8-16); ASPARTATE AMINO TRANSFERASE 31 U/L (10-37); BILIRUBIN,TOTAL 0.2 MG/DL (0.1-1.0); BLOOD UREA NITROGEN 10 MG/DL (7-18); BUN/CREATININE RATIO 17.5 (6.6-38.0); CALCIUM 8.3 MG/DL (8.5-10.1); CHLORIDE 108 MMOL/L (99-107); CREATININE 0.57 MG/DL (0.40-0.90); GLUCOSE 84 MG/DL (70-104); POTASSIUM 4.3 MMOL/L (3.5-5.1); SODIUM 143 MMOL/L (135-145); TOTAL CARBON DIOXIDE 23.5 MMOL/L (24-32); TOTAL PROTEIN 7.7 G/DL (6.4-8.2); eGFR > 90 ML/MIN
[2021-10-29 19:29] LABS: ETHANOL 0.247 GM/DL (0.0-0.010)
[2021-10-29 19:38] LABS: ANISOCYTOSIS 2+; PLATELET ESTIMATE NORMAL; POLYCHROMASIA FEW; TARGET CELLS 1+
[2021-10-29 19:39] LABS: ELLIPTOCYTES FEW
[2021-10-29 20:08] LABS: ACETAMINOPHEN < 2.0 UG/ML (10-30)
--- NOTE | 2021-10-29 21:37 | NUR ---
PT SLEEPING COMFORTABLY. NO COMPLAINTS. TOOK COVID SWAB FROM PT. PT COOPERATIVE.
--- NOTE | 2021-10-29 22:20 | NUR ---
PT ARRIVED FROM MAIN ED WEARING JEANS AND TSHIRT, AND HOOP EARRINGS. PT IS ATTEMPTING TO PROVIDE A URINE SAMPLE AND CHANGE INTO GREEN SCRUBS.
--- NOTE | 2021-10-29 22:31 | NUR ---
Pt states she was suicidal and was drinking and made suicidal statements to her mother. Pt states she is no longer suicidal since she has arrived in the ED and is feeling better. Pt states she "might be" diagnosed with borderline personality and has hx of anxiety and depression.
[2021-10-29 22:42] LABS: URINE AMPHETAMINE SCREEN NEGATIVE (Neg); URINE BARBITUATE SCREEN NEGATIVE (Neg); URINE BENZODIAZEPINES SCREEN NEGATIVE (Neg); URINE CANNABINOID SCREEN NEGATIVE (Neg); URINE COCAINE SCREEN NEGATIVE (Neg); URINE METHADONE SCREEN NEGATIVE (Neg); URINE OPIATE SCREEN NEGATIVE (Neg); URINE PHENCYCLIDINE SCREEN NEGATIVE (Neg)
[2021-10-29 22:48] LABS: CLARITY,URINE CLEAR (Clear); COLOR,URINE YELLOW (Yellow); GLUCOSE, URINE NEGATIVE (Neg); KETONES,URINE NEGATIVE (Neg); LEUKOCYTE ESTERASE ,URINE NEGATIVE (Neg); NITRITES, URINE NEGATIVE (Neg); OCCULT BLOOD,URINE LARGE (Neg); PROTEIN,URINE NEGATIVE (Neg); UROBILINOGEN,URINE 0.2 E.U/dL (0.2-1.0)
[2021-10-29 22:53] LABS: UA COLLECTION TYPE CLN CATCH MIDSTREAM
[2021-10-29 22:54] LABS: WBC,URINE 0-4 /HPF (0-4)
[2021-10-29 22:55] LABS: BACTERIA,URINE FEW /HPF (Neg); MUCUS STRANDS NONE SEEN /LPF (Neg); SQUAMOUS EPITHELIAL CELL,UR FEW /LPF (FEW)
--- NOTE | 2021-10-29 23:56 | NUR ---
Pt laying in bed appears to be sleeping rr 16, even and unlabored.
--- NOTE | 2021-10-30 02:02 | NUR ---
Pt is laying on her right side appears to be asleep rr even and unlabored
--- NOTE | 2021-10-30 04:23 | NUR ---
pt appears to be asleep rr 16
[2021-10-30 05:45] VITALS: BP 155/81
--- NOTE | 2021-10-30 05:56 | NUR ---
pt appears to be asleep in bed rr even and unlabored
--- NOTE | 2021-10-30 08:22 | NUR ---
PT MOVED TO BED 15. APPEARS TO BE SLEEPING. NO S/S DISTRESS.
--- NOTE | 2021-10-30 08:35 | NUR ---
Patient eating breakfast. No distress observed. Continue to monitor.
--- NOTE | 2021-10-30 10:34 | NUR ---
Patient sleeping on left side. No distress observed. Continue to monitor.
--- NOTE | 2021-10-30 12:19 | NUR ---
Patient eating lunch. No distress observed. Continue to monitor.
--- NOTE | 2021-10-30 14:06 | NUR ---
Patient sleeping. No distress observed. Continue to monitor.
== END 2021-10-30 16:55 | disposition home or self-care (01) ==
LOC: ER 17:50
DX: F10.129 Alcohol abuse with intoxication, unspecified (principal); Z20.822 Contact with and (suspected) exposure to COVID-19; R45.851 Suicidal ideations; R47.81 Slurred speech; F32.A Depression, unspecified; Z72.89 Other problems related to lifestyle; Z79.899 Other long term (current) drug therapy; Y90.0 Blood alcohol level of less than 20 mg/100 ml
CPT/HCPCS: 36415; 71045; 80053; 80305; 80320; 80329; 81001; 84443; 85008; 85025; 87635; 93005; 99285; C9803; J7030

== ENCOUNTER 2023-06-25 18:45 | Inpatient (IN) | payer MEDICAID ==
[~2023-06-25] VITALS: Ht 167.6 cm; Wt 80.1 kg
[2023-06-25 19:22] LABS: BILIRUBIN,URINE SMALL (Neg); CLARITY,URINE CLOUDY (Clear); COLOR,URINE AMBER (Yellow); GLUCOSE, URINE NEGATIVE (Neg); KETONES,URINE 40 mg/dl (Neg); LEUKOCYTE ESTERASE ,URINE TRACE (Neg); OCCULT BLOOD,URINE LARGE (Neg); PH,URINE 5.5 (4.8-8.0); PROTEIN,URINE 100 mg/dl (Neg)
[2023-06-25 19:29] LABS: UA COLLECTION TYPE CLN CATCH MIDSTREAM
[2023-06-25 19:30] LABS: MUCUS STRANDS MANY /LPF (Neg); NITRITES, URINE NEGATIVE (Neg); SQUAMOUS EPITHELIAL CELL,UR MODERATE /LPF (FEW)
[2023-06-25 19:31] LABS: RBC,URINE TNTC /HPF (0-2)
[2023-06-25 19:33] LABS: BACTERIA,URINE 2+ /HPF (Neg)
[2023-06-25 19:52] LABS: BASOPHILS % (AUTO) 0.5 % (0-1); EOSINOPHILS # (AUTO) 0.1 X10'3 (0-0.9); EOSINOPHILS % (AUTO) 0.9 % (0-6); HEMATOCRIT 38.4 % (35.0-45.0); HEMOGLOBIN 12.3 g/dl (12.0-16.0); MEAN CORPUSCULAR HEMOGLOBIN 29.2 PG (27.0-31.0); MEAN CORPUSCULAR VOLUME 91.4 FL (78-98); MEAN PLATELET VOLUME 10.1 FL (7.4-10.4); MONOCYTES # (AUTO) 0.7 X10'3 (0-0.9); MONOCYTES % (AUTO) 7.9 % (2-12); NEUTROPHILS # (AUTO) 7.4 X10'3 (1.8-7.7); NEUTROPHILS % (AUTO) 79.7 % (42-75); PLATELET COUNT 217 X10'3 (140-440); RED CELL DISTRIBUTION WIDTH 20.6 % (11.5-14.5); WHITE BLOOD COUNT 9.2 X10'3 (4.5-11.0)
[2023-06-25 20:00] LABS: ALANINE AMINOTRANSFERASE 138 U/L (12-78); ALBUMIN 3.8 G/DL (3.4-5.0); ALBUMIN/GLOBULIN RATIO 0.8 (1.1-1.5); ALKALINE PHOSPHATASE 119 IU/L (46-116); ANION GAP 17 (8-16); ASPARTATE AMINO TRANSFERASE 103 U/L (10-37); BILIRUBIN,TOTAL 1.2 MG/DL (0.1-1.0); BLOOD UREA NITROGEN 30 MG/DL (7-18); CALCIUM 10.2 MG/DL (8.5-10.1); CHLORIDE 92 MMOL/L (99-107); CREATININE 0.75 MG/DL (0.40-0.90); GLUCOSE 155 MG/DL (70-104); POTASSIUM 3.4 MMOL/L (3.5-5.1); SODIUM 127 MMOL/L (135-145); TOTAL CARBON DIOXIDE 17.6 MMOL/L (24-32); TOTAL PROTEIN 8.6 G/DL (6.4-8.2); eCRCL 82 ML/MIN; eGFR 81 ML/MIN
[2023-06-25 20:11] LABS: LIPASE > 375 U/L (16-77)
[2023-06-25 21:48] LABS: ANISOCYTOSIS 3+; PLATELET ESTIMATE NORMAL; POLYCHROMASIA FEW; STOMATOCYTES 1+; TARGET CELLS FEW
[2023-06-26] MEDS ORDERED: fentaNYL/PF 50MCG/1 ML 2ML syringe IV ONE (02:30)
[2023-06-26] MEDS ORDERED: normal saline 1000ML IV soln IVB ONE (02:30)
[2023-06-26] MEDS ORDERED: ondansetron/PF 4mg/2ml inj IV ONE (02:30)
[2023-06-26 02:43] LABS: ETHANOL < 10 MG/DL (<10)
[2023-06-26] MEDS ORDERED: ondansetron 4mg rapidly disintigrating tab PO PRN (04:25)
[2023-06-26] MEDS ORDERED: dextrose 50%-water 50ml dispensing syringe IV PRN (04:25)
[2023-06-26] MEDS ORDERED: bisacodyl 10mg suppository rectal RC PRN (04:25)
[2023-06-26] MEDS ORDERED: potassium Cl 20 mEq SR tablet PO PRN (04:25)
[2023-06-26] MEDS ORDERED: acetaminophen 650mg rectal suppository RC PRN (04:25)
[2023-06-26] MEDS ORDERED: LORazepam 2 mg/ml vial IV PRN ×2 (04:25)
[2023-06-26] MEDS ORDERED: ondansetron/PF 4mg/2ml inj IV PRN (04:25)
[2023-06-26] MEDS ORDERED: magnesium hydroxide 30ml (MOM) UD suspension PO PRN (04:25)
[2023-06-26] MEDS ORDERED: diphenhydrAMINE 25mg capsule PO PRN (04:25)
[2023-06-26] MEDS ORDERED: metoclopramide 5 mg/ml inj IV PRN (04:25)
[2023-06-26] MEDS ORDERED: magnesium 4gm in 100ml NS 100 ML IV PRN (04:25)
[2023-06-26] MEDS ORDERED: magnesium Cl slow-release 64mg tablet PO PRN (04:25)
[2023-06-26] MEDS ORDERED: diphenhydrAMINE 50 mg/ml inj IV PRN (04:25)
[2023-06-26] MEDS ORDERED: morphine 2 MG/ML inj. syringe IV PRN ×2 (04:25)
[2023-06-26] MEDS ORDERED: magnesium 2GM in 50ml NS 50 ML IV PRN (04:25)
[2023-06-26] MEDS ORDERED: HYDROcodone/acetaminophen 5mg/325mg tablet PO PRN (04:25)
[2023-06-26] MEDS ORDERED: haloperidol lactate 5mg/ml inj IM PRN (04:25)
[2023-06-26] MEDS ORDERED: mag hydrox/Alum hydrox/simeth 30ml oral suspension PO PRN (04:25)
[2023-06-26] MEDS ORDERED: potassium Cl 40MEQ/1/2NS 520ml 520 ML IV PRN (04:25)
[2023-06-26] MEDS ORDERED: acetaminophen 325mg tablet PO PRN ×2 (04:25)
[2023-06-26] MEDS: HYDROcodone/acetaminophen 10/325mg tab PO PRN ×3 (04:43→19:21)
[2023-06-26] MEDS: potassium Cl 20mEq in NS 1,000 ML IV SCH ×2 (04:50→14:25)
[2023-06-26 05:30] LABS: URINE AMPHETAMINE SCREEN NEGATIVE (Neg); URINE BARBITUATE SCREEN NEGATIVE (Neg); URINE BENZODIAZEPINES SCREEN POSITIVE (Neg); URINE CANNABINOID SCREEN NEGATIVE (Neg); URINE COCAINE SCREEN NEGATIVE (Neg); URINE METHADONE SCREEN NEGATIVE (Neg); URINE OPIATE SCREEN NEGATIVE (Neg); URINE PHENCYCLIDINE SCREEN NEGATIVE (Neg)
[2023-06-26] MEDS ORDERED: LORazepam 1 MG tablet PO PRN (05:30)
[2023-06-26 07:03] LABS: ABG BASE EXCESS -8.3 mmol/L (-2.0-2.0); ABG HCO3 15.7 mmol/L (22.0-26.0); ABG OXYGEN SATURATION 96.9 % (94-97); ABG PCO2 (T) 27.5 mmHg (32.0-45.0); ABG PH (T) 7.374 (7.350-7.450); ALLEN'S TEST POSITIVE; FCOHb 0.3 % (0.0-3.9); FHHb 3.1 % (0.0-5.0); FMetHb 0.3 % (0.0-1.5); FO2Hb 96.3 % (94-97); MODE ROOM AIR; TOTAL HEMOGLOBIN 10.4 G/dl (12.0-16.0)
[2023-06-26] MEDS: docusate sod 100mg capsule PO SCH ×3 (08:00→19:19)
[2023-06-26] MEDS: K and/or MAG REPLACEMENT MC SCH ×2 (08:00→19:05)
[2023-06-26] MEDS: thiamine 100mg/ml 2ml inj. IV SCH ×3 (08:28→20:06)
[2023-06-26] MEDS: pantoprazole 40mg Tablet.DR PO SCH (08:28)
[2023-06-26] MEDS: folic acid 1mg/0.2ml inj IV SCH (08:29)
[2023-06-26] MEDS: heparin, porcine 5000 units/ml vial SQ SCH ×2 (08:36→19:19)
[2023-06-26 09:00] LABS: MAGNESIUM 1.7 MG/DL (1.5-2.4); PHOSPHORUS 3.6 MG/DL (2.3-4.5); POTASSIUM 3.7 MMOL/L (3.5-5.1)
[2023-06-26 10:12] LABS: HEMOGLOBIN A1C 4.5 % (4.5-6.2)
[2023-06-26] MEDS ORDERED: NO HOME MEDS (10:39)
[2023-06-26 14:59] LABS: BASOPHILS % (AUTO) 0.5 % (0-1); EOSINOPHILS # (AUTO) 0.2 X10'3 (0-0.9); EOSINOPHILS % (AUTO) 3.9 % (0-6); HEMATOCRIT 26.9 % (35.0-45.0); HEMOGLOBIN 8.7 g/dl (12.0-16.0); LYMPHOCYTES # (AUTO) 1.1 X10'3 (1.1-4.8); LYMPHOCYTES % (AUTO) 17.1 % (21-51); MEAN CORPUSCULAR HEMOGLOBIN 29.8 PG (27.0-31.0); MEAN CORPUSCULAR HGB CONC 32.5 g/dL (33.0-36.5); MEAN CORPUSCULAR VOLUME 91.7 FL (78-98); MEAN PLATELET VOLUME 9.9 FL (7.4-10.4); MONOCYTES # (AUTO) 0.5 X10'3 (0-0.9); MONOCYTES % (AUTO) 8.2 % (2-12); NEUTROPHILS # (AUTO) 4.3 X10'3 (1.8-7.7); NEUTROPHILS % (AUTO) 70.3 % (42-75); PLATELET COUNT 152 X10'3 (140-440); RED BLOOD COUNT 2.93 X10'6 (4.20-5.60); RED CELL DISTRIBUTION WIDTH 21.1 % (11.5-14.5); WHITE BLOOD COUNT 6.2 X10'3 (4.5-11.0)
[2023-06-26 15:13] LABS: APTT 25 SECONDS (22-32); D-DIMER 1.97 MG/L FEU (0-0.50); PROTHROMBIN TIME 10.9 SECONDS (9.0-12.0)
[2023-06-26 16:48] LABS: BASOPHILS % (AUTO) 0.5 % (0-1); EOSINOPHILS # (AUTO) 0.2 X10'3 (0-0.9); EOSINOPHILS % (AUTO) 3.8 % (0-6); HEMATOCRIT 29.9 % (35.0-45.0); HEMOGLOBIN 9.7 g/dl (12.0-16.0); LYMPHOCYTES # (AUTO) 1.1 X10'3 (1.1-4.8); LYMPHOCYTES % (AUTO) 20.8 % (21-51); MEAN CORPUSCULAR HEMOGLOBIN 29.7 PG (27.0-31.0); MEAN CORPUSCULAR HGB CONC 32.4 g/dL (33.0-36.5); MEAN CORPUSCULAR VOLUME 91.7 FL (78-98); MONOCYTES # (AUTO) 0.4 X10'3 (0-0.9); MONOCYTES % (AUTO) 7.7 % (2-12); NEUTROPHILS # (AUTO) 3.7 X10'3 (1.8-7.7); NEUTROPHILS % (AUTO) 67.2 % (42-75); PLATELET COUNT 185 X10'3 (140-440); RED BLOOD COUNT 3.26 X10'6 (4.20-5.60); RED CELL DISTRIBUTION WIDTH 20.8 % (11.5-14.5); WHITE BLOOD COUNT 5.5 X10'3 (4.5-11.0)
[2023-06-26 17:11] LABS: ALANINE AMINOTRANSFERASE 90 U/L (12-78); ALBUMIN 2.9 G/DL (3.4-5.0); ALBUMIN/GLOBULIN RATIO 0.7 (1.1-1.5); ALKALINE PHOSPHATASE 89 IU/L (46-116); ANION GAP 11 (8-16); ASPARTATE AMINO TRANSFERASE 66 U/L (10-37); BLOOD UREA NITROGEN 19 MG/DL (7-18); BUN/CREATININE RATIO 30.2 (10.0-20.0); CALCIUM 8.4 MG/DL (8.5-10.1); CHLORIDE 103 MMOL/L (99-107); CREATININE 0.63 MG/DL (0.40-0.90); GLUCOSE 94 MG/DL (70-104); POTASSIUM 3.2 MMOL/L (3.5-5.1); SODIUM 134 MMOL/L (135-145); TOTAL CARBON DIOXIDE 20.2 MMOL/L (24-32); TOTAL PROTEIN 6.8 G/DL (6.4-8.2); eCRCL 98 ML/MIN; eGFR > 90 ML/MIN
[2023-06-26 17:22] LABS: LIPASE > 375 U/L (16-77)
[2023-06-26] MEDS: CefTRIAXone/D5W-Rocephin 1gm 50 ML IV SCH (19:18)
[2023-06-26] MEDS: potassium Cl 20 mEq SR tablet PO PRN (19:19)
[2023-06-26] MEDS ORDERED: temazepam 15mg capsule PO PRN (21:00)
[2023-06-26 22:00] VITALS: RESP 16; O2SAT 100
[2023-06-26 22:45] VITALS: BP 129/76; PULSE 74; RESP 16; TEMP 97; O2SAT 100
[2023-06-27] VITALS (7 sets, daily range): BP systolic 103–132; BP diastolic 39–71; PULSE 75–83; RESP 13–18; TEMP 97.4–98.4; O2SAT 97–100
[2023-06-27] MEDS: HYDROcodone/acetaminophen 10/325mg tab PO PRN ×3 (02:25→18:01)
[2023-06-27] MEDS: potassium Cl 20 mEq SR tablet PO PRN (02:25)
[2023-06-27] MEDS: potassium Cl 20mEq in NS 1,000 ML IV SCH ×3 (02:27→19:47)
[2023-06-27 07:00] LABS: BASOPHILS % (AUTO) 0.6 % (0-1); EOSINOPHILS # (AUTO) 0.3 X10'3 (0-0.9); EOSINOPHILS % (AUTO) 6.6 % (0-6); HEMATOCRIT 26.1 % (35.0-45.0); HEMOGLOBIN 8.5 g/dl (12.0-16.0); LYMPHOCYTES # (AUTO) 1.2 X10'3 (1.1-4.8); LYMPHOCYTES % (AUTO) 31.7 % (21-51); MEAN CORPUSCULAR HEMOGLOBIN 30.1 PG (27.0-31.0); MEAN CORPUSCULAR HGB CONC 32.7 g/dL (33.0-36.5); MEAN CORPUSCULAR VOLUME 92.1 FL (78-98); MEAN PLATELET VOLUME 9.6 FL (7.4-10.4); MONOCYTES # (AUTO) 0.4 X10'3 (0-0.9); MONOCYTES % (AUTO) 9.7 % (2-12); NEUTROPHILS % (AUTO) 51.4 % (42-75); PLATELET COUNT 169 X10'3 (140-440); RED BLOOD COUNT 2.84 X10'6 (4.20-5.60); RED CELL DISTRIBUTION WIDTH 20.6 % (11.5-14.5); WHITE BLOOD COUNT 3.9 X10'3 (4.5-11.0)
[2023-06-27 07:24] LABS: ALANINE AMINOTRANSFERASE 65 U/L (12-78); ALBUMIN 2.3 G/DL (3.4-5.0); ALBUMIN/GLOBULIN RATIO 0.7 (1.1-1.5); ALKALINE PHOSPHATASE 75 IU/L (46-116); ANION GAP 9 (8-16); ASPARTATE AMINO TRANSFERASE 55 U/L (10-37); BILIRUBIN,TOTAL 0.5 MG/DL (0.1-1.0); BLOOD UREA NITROGEN 9 MG/DL (7-18); BUN/CREATININE RATIO 19.6 (10.0-20.0); CALCIUM 8.1 MG/DL (8.5-10.1); CHLORIDE 109 MMOL/L (99-107); CHOL/HDL RATIO 8.3 (0.00-4.99); CHOLESTEROL 116 MG/DL (0-200); CREATININE 0.46 MG/DL (0.40-0.90); GLUCOSE 83 MG/DL (70-104); HDL CHOLESTEROL 14 MG/DL (35-60); LDL CHOLESTEROL 81 MG/DL (50-100); POTASSIUM 3.7 MMOL/L (3.5-5.1); SODIUM 138 MMOL/L (135-145); TOTAL CARBON DIOXIDE 19.9 MMOL/L (24-32); TOTAL PROTEIN 5.6 G/DL (6.4-8.2); TRIGLYCERIDES 70 MG/DL (20-135); eCRCL 134 ML/MIN; eGFR > 90 ML/MIN
[2023-06-27] MEDS: docusate sod 100mg capsule PO SCH ×2 (08:00→19:24)
[2023-06-27] MEDS: K and/or MAG REPLACEMENT MC SCH ×2 (08:45→19:22)
[2023-06-27] MEDS: pantoprazole 40mg Tablet.DR PO SCH (08:48)
[2023-06-27] MEDS: CefTRIAXone/D5W-Rocephin 1gm 50 ML IV SCH (08:48)
[2023-06-27] MEDS: heparin, porcine 5000 units/ml vial SQ SCH ×2 (08:49→19:24)
[2023-06-27 09:00] LABS: ANISOCYTOSIS 3+; HYPOCHROMASIA 1+; PLATELET ESTIMATE NORMAL
[2023-06-27 09:04] LABS: POLYCHROMASIA FEW; ROULEAUX 1+; SCHISTOCYTES FEW
[2023-06-27] MEDS: thiamine 100mg/ml 2ml inj. IV SCH (10:43)
[2023-06-27] MEDS: folic acid 1mg/0.2ml inj IV SCH (10:43)
[2023-06-28] MEDS: HYDROcodone/acetaminophen 10/325mg tab PO PRN ×4 (00:26→19:44)
[2023-06-28 02:00] VITALS: BP 112/53; PULSE 85; RESP 16; TEMP 97.6; O2SAT 100
[2023-06-28] MEDS: potassium Cl 20mEq in NS 1,000 ML IV SCH ×2 (05:25→16:46)
[2023-06-28 06:00] VITALS: BP 132/47; PULSE 81; RESP 16; TEMP 97.1; O2SAT 99
[2023-06-28 06:31] LABS: BASOPHILS % (AUTO) 1.4 % (0-1); EOSINOPHILS # (AUTO) 0.2 X10'3 (0-0.9); EOSINOPHILS % (AUTO) 8.5 % (0-6); HEMATOCRIT 26.5 % (35.0-45.0); HEMOGLOBIN 8.5 g/dl (12.0-16.0); LYMPHOCYTES # (AUTO) 1.2 X10'3 (1.1-4.8); MEAN CORPUSCULAR HEMOGLOBIN 29.8 PG (27.0-31.0); MEAN PLATELET VOLUME 9.7 FL (7.4-10.4); MONOCYTES # (AUTO) 0.3 X10'3 (0-0.9); MONOCYTES % (AUTO) 9.8 % (2-12); NEUTROPHILS # (AUTO) 1.1 X10'3 (1.8-7.7); NEUTROPHILS % (AUTO) 38.3 % (42-75); PLATELET COUNT 203 X10'3 (140-440); RED BLOOD COUNT 2.85 X10'6 (4.20-5.60); WHITE BLOOD COUNT 2.8 X10'3 (4.5-11.0)
[2023-06-28 06:37] LABS: ALANINE AMINOTRANSFERASE 59 U/L (12-78); ALBUMIN 2.3 G/DL (3.4-5.0); ALBUMIN/GLOBULIN RATIO 0.7 (1.1-1.5); ALKALINE PHOSPHATASE 73 IU/L (46-116); ANION GAP 7 (8-16); ASPARTATE AMINO TRANSFERASE 44 U/L (10-37); BILIRUBIN,TOTAL 0.3 MG/DL (0.1-1.0); BLOOD UREA NITROGEN 3 MG/DL (7-18); BUN/CREATININE RATIO 7.3 (10.0-20.0); CALCIUM 7.8 MG/DL (8.5-10.1); CHLORIDE 109 MMOL/L (99-107); CHOL/HDL RATIO 7.9 (0.00-4.99); CHOLESTEROL 118 MG/DL (0-200); CREATININE 0.41 MG/DL (0.40-0.90); GLUCOSE 90 MG/DL (70-104); HDL CHOLESTEROL 15 MG/DL (35-60); LDL CHOLESTEROL 82 MG/DL (50-100); LIPASE 313 U/L (16-77); POTASSIUM 3.5 MMOL/L (3.5-5.1); SODIUM 139 MMOL/L (135-145); TOTAL CARBON DIOXIDE 23.1 MMOL/L (24-32); TOTAL PROTEIN 5.5 G/DL (6.4-8.2); TRIGLYCERIDES 103 MG/DL (20-135); eCRCL 150 ML/MIN; eGFR > 90 ML/MIN
[2023-06-28 07:22] LABS: ANISOCYTOSIS 3+; PLATELET ESTIMATE NORMAL; TOTAL CELLS COUNTED 100
[2023-06-28 07:24] LABS: SCHISTOCYTES FEW
[2023-06-28 08:00] VITALS: RESP 13; O2SAT 99
[2023-06-28] MEDS: folic acid 1mg/0.2ml inj IV SCH (08:00)
[2023-06-28] MEDS: heparin, porcine 5000 units/ml vial SQ SCH ×2 (08:00→19:44)
[2023-06-28] MEDS: K and/or MAG REPLACEMENT MC SCH ×2 (08:00→19:41)
[2023-06-28] MEDS: pantoprazole 40mg Tablet.DR PO SCH (08:11)
[2023-06-28] MEDS: docusate sod 100mg capsule PO SCH ×2 (08:12→19:44)
[2023-06-28] MEDS: thiamine 100mg/ml 2ml inj. IV SCH (08:18)
[2023-06-28] MEDS: CefTRIAXone/D5W-Rocephin 1gm 50 ML IV SCH (08:20)
[2023-06-28 11:00] VITALS: BP 104/53; PULSE 78; RESP 15; TEMP 97.2; O2SAT 97
[2023-06-28 18:00] VITALS: BP 117/60; PULSE 75; RESP 15; TEMP 97.7; O2SAT 99
[2023-06-28 22:00] VITALS: BP 124/48; PULSE 80; RESP 20; TEMP 97.6; O2SAT 100
[2023-06-29 02:00] VITALS: BP 121/51; PULSE 77; RESP 16; TEMP 97.6; O2SAT 100
[2023-06-29] MEDS: HYDROcodone/acetaminophen 10/325mg tab PO PRN ×3 (02:30→17:18)
[2023-06-29] MEDS: potassium Cl 20mEq in NS 1,000 ML IV SCH ×3 (05:00→17:19)
[2023-06-29 06:21] LABS: BASOPHILS % (AUTO) 1.3 % (0-1); EOSINOPHILS # (AUTO) 0.3 X10'3 (0-0.9); HEMOGLOBIN 8.5 g/dl (12.0-16.0); LYMPHOCYTES # (AUTO) 1.4 X10'3 (1.1-4.8); MONOCYTES # (AUTO) 0.4 X10'3 (0-0.9); NEUTROPHILS # (AUTO) 0.8 X10'3 (1.8-7.7); NEUTROPHILS % (AUTO) 26.7 % (42-75)
[2023-06-29 06:24] LABS: EOSINOPHILS % (AUTO) 9.2 % (0-6); HEMATOCRIT 26.3 % (35.0-45.0); LYMPHOCYTES % (AUTO) 50.1 % (21-51); MEAN CORPUSCULAR HGB CONC 32.4 g/dL (33.0-36.5); MEAN CORPUSCULAR VOLUME 92.7 FL (78-98); MONOCYTES % (AUTO) 12.7 % (2-12); PLATELET COUNT 215 X10'3 (140-440); RED BLOOD COUNT 2.84 X10'6 (4.20-5.60); RED CELL DISTRIBUTION WIDTH 21.3 % (11.5-14.5); WHITE BLOOD COUNT 2.8 X10'3 (4.5-11.0)
[2023-06-29 06:30] LABS: ALANINE AMINOTRANSFERASE 45 U/L (12-78); ALBUMIN 2.3 G/DL (3.4-5.0); ALBUMIN/GLOBULIN RATIO 0.7 (1.1-1.5); ALKALINE PHOSPHATASE 72 IU/L (46-116); ANION GAP 5 (8-16); ASPARTATE AMINO TRANSFERASE 38 U/L (10-37); BILIRUBIN,TOTAL 0.3 MG/DL (0.1-1.0); BLOOD UREA NITROGEN 2 MG/DL (7-18); BUN/CREATININE RATIO 4.1 (10.0-20.0); CALCIUM 8.7 MG/DL (8.5-10.1); CHLORIDE 109 MMOL/L (99-107); CREATININE 0.49 MG/DL (0.40-0.90); GLUCOSE 103 MG/DL (70-104); LIPASE 272 U/L (16-77); POTASSIUM 4.1 MMOL/L (3.5-5.1); SODIUM 140 MMOL/L (135-145); TOTAL CARBON DIOXIDE 25.6 MMOL/L (24-32); TOTAL PROTEIN 5.6 G/DL (6.4-8.2); eCRCL 126 ML/MIN; eGFR > 90 ML/MIN
[2023-06-29 07:15] LABS: TOTAL CELLS COUNTED 100
[2023-06-29 07:16] LABS: ANISOCYTOSIS 3+; HYPOCHROMASIA 1+; PLATELET ESTIMATE NORMAL
[2023-06-29 07:45] VITALS: BP 121/52; PULSE 71; RESP 16; TEMP 97.7; O2SAT 99
[2023-06-29 08:00] VITALS: RESP 16
[2023-06-29] MEDS: K and/or MAG REPLACEMENT MC SCH ×2 (08:00→19:19)
[2023-06-29] MEDS: docusate sod 100mg capsule PO SCH ×2 (08:17→19:18)
[2023-06-29] MEDS: thiamine 100mg/ml 2ml inj. IV SCH (08:17)
[2023-06-29] MEDS: CefTRIAXone/D5W-Rocephin 1gm 50 ML IV SCH (08:17)
[2023-06-29] MEDS: heparin, porcine 5000 units/ml vial SQ SCH ×2 (08:17→19:14)
[2023-06-29] MEDS: pantoprazole 40mg Tablet.DR PO SCH (08:18)
[2023-06-29 10:00] VITALS: BP 98/49; PULSE 81; RESP 18; TEMP 97.1; O2SAT 95
[2023-06-29 15:00] VITALS: BP 97/59; PULSE 83; RESP 16; TEMP 98.1; O2SAT 98
[2023-06-29 22:00] VITALS: BP 111/39; PULSE 82; RESP 13; TEMP 97.2; O2SAT 99
[2023-06-30] MEDS: HYDROcodone/acetaminophen 10/325mg tab PO PRN ×3 (00:16→14:15)
[2023-06-30 02:00] VITALS: BP 104/48; PULSE 71; RESP 13; TEMP 97.6; O2SAT 98
[2023-06-30 07:11] VITALS: BP 113/62; PULSE 73; RESP 15; TEMP 97.4; O2SAT 99
[2023-06-30 07:11] LABS: HEMOGLOBIN 8.7 g/dl (12.0-16.0); RED BLOOD COUNT 2.92 X10'6 (4.20-5.60); WHITE BLOOD COUNT 2.7 X10'3 (4.5-11.0)
[2023-06-30 07:12] LABS: BASOPHILS # (AUTO) 0.1 X10'3 (0-0.2); EOSINOPHILS # (AUTO) 0.2 X10'3 (0-0.9); NEUTROPHILS # (AUTO) 0.6 X10'3 (1.8-7.7)
[2023-06-30 07:13] LABS: HEMATOCRIT 27.1 % (35.0-45.0); LYMPHOCYTES # (AUTO) 1.5 X10'3 (1.1-4.8); MEAN CORPUSCULAR HEMOGLOBIN 29.8 PG (27.0-31.0); MEAN CORPUSCULAR HGB CONC 32.1 g/dL (33.0-36.5); MEAN CORPUSCULAR VOLUME 92.8 FL (78-98); MEAN PLATELET VOLUME 9.9 FL (7.4-10.4); MONOCYTES # (AUTO) 0.3 X10'3 (0-0.9); PLATELET COUNT 232 X10'3 (140-440); RED CELL DISTRIBUTION WIDTH 21.1 % (11.5-14.5)
[2023-06-30 07:24] LABS: % IRON SATURATION 16 % (11-46); IRON 33 UG/DL (49-151); TOTAL IRON BINDING CAPACITY 206 UG/DL (259-388)
[2023-06-30 07:27] LABS: BASOPHILS % (AUTO) 2.6 % (0-1); EOSINOPHILS % (AUTO) 7.2 % (0-6); LYMPHOCYTES % (AUTO) 53.2 % (21-51); MONOCYTES % (AUTO) 13.7 % (2-12); NEUTROPHILS % (AUTO) 23.3 % (42-75)
[2023-06-30 07:45] VITALS: RESP 16
[2023-06-30] MEDS: pantoprazole 40mg Tablet.DR PO SCH (07:47)
[2023-06-30] MEDS: docusate sod 100mg capsule PO SCH (07:48)
[2023-06-30 07:49] LABS: ALANINE AMINOTRANSFERASE 41 U/L (12-78); ALBUMIN 2.5 G/DL (3.4-5.0); ALBUMIN/GLOBULIN RATIO 0.7 (1.1-1.5); ALKALINE PHOSPHATASE 75 IU/L (46-116); ANION GAP 8 (8-16); ASPARTATE AMINO TRANSFERASE 43 U/L (10-37); BILIRUBIN,TOTAL 0.4 MG/DL (0.1-1.0); BLOOD UREA NITROGEN 4 MG/DL (7-18); BUN/CREATININE RATIO 7.8 (10.0-20.0); CALCIUM 9.1 MG/DL (8.5-10.1); CHLORIDE 107 MMOL/L (99-107); CREATININE 0.51 MG/DL (0.40-0.90); GLUCOSE 98 MG/DL (70-104); LIPASE 273 U/L (16-77); POTASSIUM 3.9 MMOL/L (3.5-5.1); SODIUM 141 MMOL/L (135-145); TOTAL CARBON DIOXIDE 25.8 MMOL/L (24-32); TOTAL PROTEIN 5.9 G/DL (6.4-8.2); eCRCL 121 ML/MIN; eGFR > 90 ML/MIN
[2023-06-30] MEDS: CefTRIAXone/D5W-Rocephin 1gm 50 ML IV SCH (07:49)
[2023-06-30] MEDS: heparin, porcine 5000 units/ml vial SQ SCH (07:52)
[2023-06-30] MEDS: potassium Cl 20mEq in NS 1,000 ML IV SCH (07:52)
[2023-06-30 07:57] LABS: FERRITIN 62 NG/ML (8-252)
[2023-06-30] MEDS: K and/or MAG REPLACEMENT MC SCH (08:00)
[2023-06-30] MEDS ORDERED: folic acid 1mg tablet PO SCH (08:00)
[2023-06-30] MEDS ORDERED: thiamine 100mg tablet PO SCH (08:00)
[2023-06-30 08:04] LABS: HIV ANTIBODY 1&2 RAPID NON-REACTIVE (Neg)
[2023-06-30 08:31] LABS: ANISOCYTOSIS 3+; LARGE PLATELETS MODERATE; PLATELET ESTIMATE NORMAL; TOTAL CELLS COUNTED 100
[2023-06-30 08:32] LABS: HYPOCHROMASIA 1+; TARGET CELLS FEW
[2023-06-30 11:41] VITALS: BP 103/50; PULSE 71; RESP 16; TEMP 97; O2SAT 99
[2023-06-30] MEDS ORDERED: PANT40TA54 PO (12:36)
[2023-06-30] MEDS ORDERED: ONDA4TAB12 PO (12:36)
[2023-06-30] MEDS ORDERED: CIPR-202 PO (12:36)
[2023-06-30 13:42] LABS: HBSAG SCREEN Negative (Negative); HEP B CORE AB, IGM Negative (Negative); HEP B CORE AB, TOT Negative (Negative)
[2023-06-30 14:15] VITALS: RESP 16
== END 2023-06-30 14:25 | disposition home or self-care (01) | DRG 282 ==
LOC: ER 18:54 → ED HOLD 06-26 04:28 → PCU 3S 06-26 23:03
PROVIDERS: ADMIT Family Medicine; ATTEND Family Medicine
DX: K85.20 Alcohol induced acute pancreatitis without necrosis or infection (principal); E87.20 Acidosis, unspecified; K70.9 Alcoholic liver disease, unspecified; E86.0 Dehydration; E87.1 Hypo-osmolality and hyponatremia; N39.0 Urinary tract infection, site not specified; F32.A Depression, unspecified; F41.0 Panic disorder [episodic paroxysmal anxiety]; F10.239 Alcohol dependence with withdrawal, unspecified; E87.6 Hypokalemia; K86.0 Alcohol-induced chronic pancreatitis; R00.0 Tachycardia, unspecified; D72.819 Decreased white blood cell count, unspecified; D64.9 Anemia, unspecified
CPT/HCPCS: 36415; 36600; 74176; 80053; 80061; 80305; 80320; 81001; 82607; 82728; 82803; 83036; 83540; 83550; 83605; 83690; 83735; 83880; 84100; 84132; 85007; 85008; 85018; 85025; 85379; 85610; 85730; 86703; 86704; 86705; 87040; 87081; 87088; 87340; 93306; 96374; 96375; 99285; G0378; J0696; J1644; J2405; J3010; J3411; J3480; J3490; J7030

== ENCOUNTER 2023-08-20 14:56 | Inpatient (IN) | payer MEDICAID ==
[~2023-08-20] VITALS: Ht 167.6 cm; Wt 75.0 kg
[~2023-08-20 14:56] MED LIST changes: -CETI10TA19 PO; -CLON0.1T2 PO; -FERR325T28 PO; -LORA-269 PO; +NO HOME MEDS; +ONDA4TAB12 PO; +PANT40TA54 PO; -VITC500T PO; -ZOLP5TAB8 PO
[2023-08-20 16:53] LABS: HEMOGLOBIN 11.4 g/dl (12.0-16.0); LYMPHOCYTES # (AUTO) 0.8 X10'3 (1.1-4.8); MONOCYTES # (AUTO) 0.4 X10'3 (0-0.9); NEUTROPHILS # (AUTO) 2.3 X10'3 (1.8-7.7); RED CELL DISTRIBUTION WIDTH 22.3 % (11.5-14.5); WHITE BLOOD COUNT 3.6 X10'3 (4.5-11.0)
[2023-08-20 16:55] LABS: HEMATOCRIT 36.5 % (35.0-45.0); LYMPHOCYTES % (AUTO) 23.6 % (21-51); MEAN CORPUSCULAR HEMOGLOBIN 27.6 PG (27.0-31.0); MEAN CORPUSCULAR HGB CONC 31.2 g/dL (33.0-36.5); MEAN CORPUSCULAR VOLUME 88.3 FL (78-98); MEAN PLATELET VOLUME 8.8 FL (7.4-10.4); MONOCYTES % (AUTO) 11.2 % (2-12); NEUTROPHILS % (AUTO) 63.2 % (42-75); PLATELET COUNT 157 X10'3 (140-440); RED BLOOD COUNT 4.13 X10'6 (4.20-5.60)
[2023-08-20 17:14] LABS: ALANINE AMINOTRANSFERASE 132 U/L (12-78); ALBUMIN 4.5 G/DL (3.4-5.0); ALKALINE PHOSPHATASE 97 IU/L (46-116); ANION GAP 15 (8-16); ASPARTATE AMINO TRANSFERASE 221 U/L (10-37); BILIRUBIN,TOTAL 0.9 MG/DL (0.1-1.0); BLOOD UREA NITROGEN 23 MG/DL (7-18); BUN/CREATININE RATIO 29.5 (10.0-20.0); CALCIUM 9.8 MG/DL (8.5-10.1); CHLORIDE 99 MMOL/L (99-107); CREATININE 0.78 MG/DL (0.40-0.90); GLUCOSE 128 MG/DL (70-104); POTASSIUM 3.7 MMOL/L (3.5-5.1); SODIUM 136 MMOL/L (135-145); TOTAL CARBON DIOXIDE 21.8 MMOL/L (24-32); TOTAL PROTEIN 8.8 G/DL (6.4-8.2); eCRCL 79 ML/MIN; eGFR 78 ML/MIN
[2023-08-20 17:31] LABS: LIPASE 126 U/L (16-77)
[2023-08-20 17:34] LABS: BETA HCG,QUANTITATIVE < 1.0 mIU/ml
[2023-08-20 19:20] LABS: ANISOCYTOSIS 3+; HYPOCHROMASIA 1+; PLATELET ESTIMATE NORMAL
[2023-08-20 19:22] LABS: SCHISTOCYTES FEW; TARGET CELLS FEW
[2023-08-20] MEDS: dicyclomine 10 MG capsule PO ONE (21:20)
[2023-08-20] MEDS: mag hydrox/Alum hydrox/simeth 30ml oral suspension PO ONE (21:21)
[2023-08-20] MEDS: LIDOcaine Viscous 15ml cup MM PRN (21:21)
[2023-08-20] MEDS ORDERED: METO10TA3 PO (22:05)
[2023-08-20] MEDS ORDERED: DICY20TA17 PO (22:05)
[2023-08-20] MEDS ORDERED: DIPH-423 PO (22:05)
[2023-08-20] MEDS: meclizine 12.5mg tablet PO ONE (23:04)
[2023-08-20 23:06] LABS: BILIRUBIN,URINE LARGE (Neg); CLARITY,URINE SLIGHTLY CLOUDY (Clear); GLUCOSE, URINE 100 mg/dl (Neg); KETONES,URINE 40 mg/dl (Neg); LEUKOCYTE ESTERASE ,URINE NEGATIVE (Neg); OCCULT BLOOD,URINE LARGE (Neg); PROTEIN,URINE 100 mg/dl (Neg)
[2023-08-20 23:13] LABS: COLOR,URINE DARK YELLOW (Yellow); NITRITES, URINE NEGATIVE (Neg); UA COLLECTION TYPE CLN CATCH MIDSTREAM
[2023-08-20 23:14] LABS: WBC,URINE 0-4 /HPF (0-4)
[2023-08-20 23:15] LABS: BACTERIA,URINE 2+ /HPF (Neg); RBC,URINE 20-50 /HPF (0-2); SQUAMOUS EPITHELIAL CELL,UR MANY /LPF (FEW)
[2023-08-20 23:16] LABS: MUCUS STRANDS FEW /LPF (Neg); RENAL CELLS, URINE FEW /HPF; TRANSITIONAL EPI CELLS,URINE FEW /HPF
[2023-08-20 23:19] LABS: FINE GRANULAR CAST 0-3 /LPF (NEGATIVE)
[2023-08-20 23:22] LABS: URINE AMPHETAMINE SCREEN NEGATIVE (Neg); URINE BARBITUATE SCREEN NEGATIVE (Neg); URINE BENZODIAZEPINES SCREEN POSITIVE (Neg); URINE CANNABINOID SCREEN NEGATIVE (Neg); URINE COCAINE SCREEN NEGATIVE (Neg); URINE METHADONE SCREEN NEGATIVE (Neg); URINE OPIATE SCREEN NEGATIVE (Neg); URINE PHENCYCLIDINE SCREEN NEGATIVE (Neg)
[2023-08-20] MEDS: metoclopramide 5 mg/ml inj IM ONE (23:50)
[2023-08-20] MEDS: diphenhydrAMINE 50 mg/ml inj IM ONE (23:50)
[2023-08-21] MEDS ORDERED: potassium Cl 20 mEq SR tablet PO PRN (00:25)
[2023-08-21] MEDS ORDERED: magnesium 2GM in 50ml NS 50 ML IV PRN (00:25)
[2023-08-21] MEDS ORDERED: magnesium 4gm in 100ml NS 100 ML IV PRN (00:25)
[2023-08-21] MEDS ORDERED: magnesium Cl slow-release 64mg tablet PO PRN (00:25)
[2023-08-21] MEDS ORDERED: ondansetron/PF 4mg/2ml inj IV PRN (00:25)
[2023-08-21] MEDS ORDERED: potassium Cl 40MEQ/1/2NS 520ml 520 ML IV PRN (00:25)
[2023-08-21] MEDS: metoclopramide 5 mg/ml inj IV ONE (01:03)
[2023-08-21] MEDS: diphenhydrAMINE 50 mg/ml inj IV ONE (01:03)
[2023-08-21] MEDS: normal saline 1000ml 1,000 ML IV SCH (01:07)
[2023-08-21] MEDS: diatr meglu/diatrizoate 30ml oral sol.-(3 dose) bottle PO SCH (03:34)
[2023-08-21] MEDS: pantoprazole 40 MG vial IV SCH (07:57)
[2023-08-21] MEDS: enoxaparin 40mg/0.4ml syringe SUBCUT SCH (07:58)
[2023-08-21 08:00] VITALS: BP_SYST 150; BP_SYST 154; BP_SYST 155; BP_DIAS 80; BP_DIAS 84; BP_DIAS 88; PULSE 78; PULSE 80
[2023-08-21] MEDS: thiamine 100mg tablet PO SCH (08:00)
[2023-08-21] MEDS: folic acid 1mg tablet PO SCH (08:00)
[2023-08-21] MEDS: K and/or MAG REPLACEMENT MC SCH (08:00)
[2023-08-21 08:48] LABS: MAGNESIUM 1.9 MG/DL (1.5-2.4); TRIGLYCERIDES 62 MG/DL (20-135)
[2023-08-21 08:56] VITALS: BP 151/65; PULSE 74; RESP 16; TEMP 97.3; O2SAT 94
[2023-08-21] MEDS ORDERED: iohexol 300mg/ml 100ml inj. ONE (09:57)
[2023-08-21 10:05] VITALS: BP 153/88; PULSE 88; RESP 18; TEMP 97; O2SAT 98
[2023-08-21] MEDS ORDERED: morphine 2 MG/ML inj. syringe IV PRN (11:00)
[2023-08-21] MEDS: morphine 2 MG/ML inj. syringe IV PRN (11:34)
[2023-08-21 13:21] VITALS: RESP 14
[2023-08-21 18:00] VITALS: BP 136/73; PULSE 78; RESP 16; TEMP 98.6; O2SAT 98
[2023-08-21] MEDS: mag hydrox/Alum hydrox/simeth 30ml oral suspension PO PRN (20:13)
[2023-08-21 22:00] VITALS: BP 130/66; PULSE 71; RESP 16; TEMP 97.8; O2SAT 98
[2023-08-22] VITALS (8 sets, daily range): BP systolic 117–147; BP diastolic 53–78; PULSE 73–112; RESP 16–18; TEMP 97.3–97.8; O2SAT 98–99
[2023-08-22 08:21] LABS: BASOPHILS % (AUTO) 1.6 % (0-1); EOSINOPHILS # (AUTO) 0.1 X10'3 (0-0.9); EOSINOPHILS % (AUTO) 5.4 % (0-6); HEMATOCRIT 28.4 % (35.0-45.0); HEMOGLOBIN 8.9 g/dl (12.0-16.0); LYMPHOCYTES # (AUTO) 0.9 X10'3 (1.1-4.8); LYMPHOCYTES % (AUTO) 49.7 % (21-51); MEAN CORPUSCULAR HEMOGLOBIN 27.6 PG (27.0-31.0); MEAN CORPUSCULAR HGB CONC 31.4 g/dL (33.0-36.5); MEAN CORPUSCULAR VOLUME 87.8 FL (78-98); MEAN PLATELET VOLUME 8.2 FL (7.4-10.4); MONOCYTES # (AUTO) 0.2 X10'3 (0-0.9); MONOCYTES % (AUTO) 11.2 % (2-12); NEUTROPHILS # (AUTO) 0.6 X10'3 (1.8-7.7); NEUTROPHILS % (AUTO) 32.1 % (42-75); PLATELET COUNT 142 X10'3 (140-440); RED BLOOD COUNT 3.23 X10'6 (4.20-5.60); RED CELL DISTRIBUTION WIDTH 23.8 % (11.5-14.5); WHITE BLOOD COUNT 1.9 X10'3 (4.5-11.0)
[2023-08-22 08:55] LABS: ALANINE AMINOTRANSFERASE 94 U/L (12-78); ALKALINE PHOSPHATASE 65 IU/L (46-116); ANION GAP 7 (8-16); ASPARTATE AMINO TRANSFERASE 114 U/L (10-37); BILIRUBIN,TOTAL 0.7 MG/DL (0.1-1.0); BLOOD UREA NITROGEN 12 MG/DL (7-18); BUN/CREATININE RATIO 22.6 (10.0-20.0); CALCIUM 8.2 MG/DL (8.5-10.1); CHLORIDE 109 MMOL/L (99-107); CREATININE 0.53 MG/DL (0.40-0.90); GLUCOSE 105 MG/DL (70-104); LIPASE 103 U/L (16-77); PHOSPHORUS 3.8 MG/DL (2.3-4.5); POTASSIUM 3.4 MMOL/L (3.5-5.1); SODIUM 142 MMOL/L (135-145); TOTAL PROTEIN 6.1 G/DL (6.4-8.2); eCRCL 116 ML/MIN; eGFR > 90 ML/MIN
[2023-08-22 09:13] LABS: TOTAL CELLS COUNTED 100
[2023-08-22 09:14] LABS: PLATELET ESTIMATE NORMAL; SCHISTOCYTES FEW
[2023-08-22 09:15] LABS: ROULEAUX 1+
[2023-08-22 09:16] LABS: ANISOCYTOSIS 3+; HYPOCHROMASIA 1+
[2023-08-22] MEDS: potassium Cl 20 mEq SR tablet PO PRN (09:30)
[2023-08-22] MEDS: CefTRIAXone 2gm/D5W 50ml BAG 50 ML IV ONE (12:27)
[2023-08-22 14:04] LABS: HBSAG SCREEN Negative (Negative); HEP B CORE AB, IGM Negative (Negative); HEPATITIS C VIRUS ANTIBODY Non Reactive (Non Reactive)
[2023-08-22] MEDS: acetaminophen 325mg tablet PO PRN (20:20)
[2023-08-22] MEDS: magnesium hydroxide 30ml (MOM) UD suspension PO PRN (20:20)
[2023-08-23 08:00] VITALS: RESP 16; O2SAT 95
[2023-08-23] MEDS: polyethylene glycol 3350 17gm powd pack PO PRN (08:37)
[2023-08-23 09:29] LABS: BASOPHILS % (AUTO) 1.2 % (0-1); EOSINOPHILS # (AUTO) 0.1 X10'3 (0-0.9); EOSINOPHILS % (AUTO) 5.5 % (0-6); HEMATOCRIT 27.4 % (35.0-45.0); HEMOGLOBIN 8.7 g/dl (12.0-16.0); LYMPHOCYTES # (AUTO) 0.9 X10'3 (1.1-4.8); LYMPHOCYTES % (AUTO) 49.9 % (21-51); MEAN CORPUSCULAR HEMOGLOBIN 27.5 PG (27.0-31.0); MEAN CORPUSCULAR HGB CONC 31.7 g/dL (33.0-36.5); MEAN PLATELET VOLUME 8.7 FL (7.4-10.4); MONOCYTES # (AUTO) 0.3 X10'3 (0-0.9); MONOCYTES % (AUTO) 18.4 % (2-12); NEUTROPHILS # (AUTO) 0.4 X10'3 (1.8-7.7); PLATELET COUNT 160 X10'3 (140-440); RED BLOOD COUNT 3.15 X10'6 (4.20-5.60); RED CELL DISTRIBUTION WIDTH 24.3 % (11.5-14.5); WHITE BLOOD COUNT 1.8 X10'3 (4.5-11.0)
[2023-08-23 09:30] VITALS: RESP 16
[2023-08-23 11:21] LABS: ALANINE AMINOTRANSFERASE 68 U/L (12-78); ALBUMIN 2.9 G/DL (3.4-5.0); ALKALINE PHOSPHATASE 57 IU/L (46-116); ANION GAP 7 (8-16); ASPARTATE AMINO TRANSFERASE 63 U/L (10-37); BILIRUBIN,TOTAL 0.4 MG/DL (0.1-1.0); BLOOD UREA NITROGEN 7 MG/DL (7-18); CALCIUM 8.3 MG/DL (8.5-10.1); CHLORIDE 113 MMOL/L (99-107); GLUCOSE 106 MG/DL (70-104); MAGNESIUM 2.1 MG/DL (1.5-2.4); PHOSPHORUS 3.2 MG/DL (2.3-4.5); SODIUM 144 MMOL/L (135-145); TOTAL CARBON DIOXIDE 23.8 MMOL/L (24-32); TOTAL PROTEIN 5.8 G/DL (6.4-8.2); eCRCL 123 ML/MIN; eGFR > 90 ML/MIN
[2023-08-23 11:28] LABS: TOTAL CELLS COUNTED 100
[2023-08-23 11:30] LABS: PLATELET ESTIMATE NORMAL
[2023-08-23 11:31] LABS: ANISOCYTOSIS 3+; HYPOCHROMASIA 1+
[2023-08-23 11:32] LABS: POLYCHROMASIA 1+
[2023-08-23] MEDS: acetaminophen 325mg tablet PO PRN (13:28)
[2023-08-23] MEDS ORDERED: FERR324T4 PO (16:24)
== END 2023-08-23 16:58 | disposition home or self-care (01) | DRG 282 ==
LOC: ER 14:56 → ED HOLD 08-21 00:31 → ORTHO 4S 08-21 07:20
PROVIDERS: ADMIT Internal Medicine Pulmonary Disease; ATTEND Internal Medicine
PROC: BW211ZZ Computerized Tomography (CT Scan) of Abdomen and Pelvis using Low Osmolar Contrast (ICD-10-PCS; principal; 2023-08-21)
DX: K85.90 Acute pancreatitis without necrosis or infection, unspecified (principal); K70.10 Alcoholic hepatitis without ascites; K76.0 Fatty (change of) liver, not elsewhere classified; R62.7 Adult failure to thrive; E86.0 Dehydration; Z20.822 Contact with and (suspected) exposure to COVID-19; F32.A Depression, unspecified; F41.0 Panic disorder [episodic paroxysmal anxiety]; D64.9 Anemia, unspecified; F17.210 Nicotine dependence, cigarettes, uncomplicated; D72.819 Decreased white blood cell count, unspecified; K29.00 Acute gastritis without bleeding; K86.1 Other chronic pancreatitis; Z68.26 Body mass index [BMI] 26.0-26.9, adult
CPT/HCPCS: 36415; 74178; 76700; 80053; 80305; 81001; 83605; 83690; 83735; 84100; 84145; 84478; 84484; 84702; 85007; 85008; 85025; 86705; 86803; 87040; 87077; 87081; 87186; 87340; 87522; 87811; 93005; 93308; 97161; 97530; 99285; C9113; G0378; J0696; J1200; J1650; J2270; J2765; J3490; J7030; J8597; Q9963; Q9967

== ENCOUNTER 2023-10-12 02:23 | Emergency (ER) | payer MEDICAID, SELFPAY ==
[~2023-10-12] VITALS: Ht 167.6 cm; Wt 72.0 kg
[~2023-10-12 02:23] MED LIST changes: +FERR324T4 PO; -NO HOME MEDS
[2023-10-12 02:26] VITALS: TEMP 98.6
[2023-10-12 02:49] LABS: BASOPHILS % (AUTO) 1.3 % (0-1); EOSINOPHILS % (AUTO) 0.9 % (0-6); HEMATOCRIT 31.8 % (35.0-45.0); HEMOGLOBIN 10.4 g/dl (12.0-16.0); LYMPHOCYTES # (AUTO) 0.8 X10'3 (1.1-4.8); LYMPHOCYTES % (AUTO) 24.9 % (21-51); MEAN CORPUSCULAR HEMOGLOBIN 26.8 PG (27.0-31.0); MEAN CORPUSCULAR HGB CONC 32.6 g/dL (33.0-36.5); MEAN CORPUSCULAR VOLUME 82.3 FL (78-98); MEAN PLATELET VOLUME 7.8 FL (7.4-10.4); MONOCYTES # (AUTO) 0.3 X10'3 (0-0.9); MONOCYTES % (AUTO) 8.6 % (2-12); NEUTROPHILS % (AUTO) 64.3 % (42-75); PLATELET COUNT 150 X10'3 (140-440); RED BLOOD COUNT 3.86 X10'6 (4.20-5.60); RED CELL DISTRIBUTION WIDTH 22.3 % (11.5-14.5)
[2023-10-12 03:05] LABS: ALANINE AMINOTRANSFERASE 49 U/L (12-78); ALBUMIN 4.1 G/DL (3.4-5.0); ALKALINE PHOSPHATASE 92 IU/L (46-116); ANION GAP 17 (8-16); ASPARTATE AMINO TRANSFERASE 97 U/L (10-37); BILIRUBIN,TOTAL 0.5 MG/DL (0.1-1.0); BLOOD UREA NITROGEN 14 MG/DL (7-18); BUN/CREATININE RATIO 22.2 (10.0-20.0); CALCIUM 8.7 MG/DL (8.5-10.1); CHLORIDE 99 MMOL/L (99-107); CREATININE 0.63 MG/DL (0.40-0.90); GLUCOSE 88 MG/DL (70-104); POTASSIUM 3.8 MMOL/L (3.5-5.1); SODIUM 138 MMOL/L (135-145); TOTAL CARBON DIOXIDE 22.3 MMOL/L (24-32); TOTAL PROTEIN 8.3 G/DL (6.4-8.2); eCRCL 98 ML/MIN; eGFR > 90 ML/MIN
[2023-10-12 03:13] LABS: PRO BRAIN NATRIURETIC PEPTIDE 40 PG/ML (0-125)
[2023-10-12] MEDS: normal saline 1000ml 1,000 ML IV ONE (03:46)
[2023-10-12] MEDS: LORazepam 2 mg/ml vial IV ONE (03:47)
[2023-10-12 05:52] VITALS: BP 132/78; PULSE 78; RESP 18; O2SAT 97
== END 2023-10-12 05:53 | disposition home or self-care (01) ==
LOC: ER 02:24
DX: E86.0 Dehydration (principal); R42 Dizziness and giddiness; Z79.899 Other long term (current) drug therapy; W19.XXXA Unspecified fall, initial encounter; Y93.89 Activity, other specified; Y92.89 Other specified places as the place of occurrence of the external cause; Y99.8 Other external cause status
CPT/HCPCS: 70450; 71045; 80053; 83880; 84484; 85025; 93005; 96361; 96374; 99285; J2060; J7030

== ENCOUNTER 2023-10-17 16:57 | Emergency (ER) | payer MEDICAID ==
[~2023-10-17] VITALS: Ht 167.6 cm; Wt 75.0 kg
[2023-10-17 17:44] LABS: URINE HCG NEGATIVE (NEG)
[2023-10-17 17:51] LABS: BILIRUBIN,URINE NEGATIVE (Neg); CLARITY,URINE CLEAR (Clear); COLOR,URINE YELLOW (Yellow); GLUCOSE, URINE NEGATIVE (Neg); KETONES,URINE NEGATIVE (Neg); LEUKOCYTE ESTERASE ,URINE NEGATIVE (Neg); NITRITES, URINE NEGATIVE (Neg); OCCULT BLOOD,URINE NEGATIVE (Neg); PH,URINE 5.5 (4.8-8.0); PROTEIN,URINE NEGATIVE (Neg); UROBILINOGEN,URINE 0.2 E.U/dL (0.2-1.0)
[2023-10-17 17:57] LABS: UA COLLECTION TYPE CLN CATCH MIDSTREAM
[2023-10-17 18:00] LABS: URINE AMPHETAMINE SCREEN NEGATIVE (Neg); URINE BARBITUATE SCREEN NEGATIVE (Neg); URINE BENZODIAZEPINES SCREEN NEGATIVE (Neg); URINE CANNABINOID SCREEN NEGATIVE (Neg); URINE COCAINE SCREEN NEGATIVE (Neg); URINE METHADONE SCREEN NEGATIVE (Neg); URINE OPIATE SCREEN NEGATIVE (Neg); URINE PHENCYCLIDINE SCREEN NEGATIVE (Neg)
[2023-10-17 18:06] LABS: BASOPHILS # (AUTO) 0.1 X10'3 (0-0.2); MONOCYTES # (AUTO) 0.3 X10'3 (0-0.9); PLATELET COUNT 175 X10'3 (140-440); RED BLOOD COUNT 3.78 X10'6 (4.20-5.60)
[2023-10-17 18:08] LABS: EOSINOPHILS # (AUTO) 0.2 X10'3 (0-0.9); EOSINOPHILS % (AUTO) 4.9 % (0-6); HEMATOCRIT 31.4 % (35.0-45.0); LYMPHOCYTES % (AUTO) 64.1 % (21-51); MEAN CORPUSCULAR HEMOGLOBIN 26.5 PG (27.0-31.0); MEAN CORPUSCULAR HGB CONC 31.8 g/dL (33.0-36.5); MEAN CORPUSCULAR VOLUME 83.3 FL (78-98); MEAN PLATELET VOLUME 7.7 FL (7.4-10.4); MONOCYTES % (AUTO) 9.2 % (2-12); NEUTROPHILS # (AUTO) 0.6 X10'3 (1.8-7.7); NEUTROPHILS % (AUTO) 19.8 % (42-75); RED CELL DISTRIBUTION WIDTH 22.7 % (11.5-14.5); WHITE BLOOD COUNT 3.1 X10'3 (4.5-11.0)
[2023-10-17 18:12] LABS: ALBUMIN 4.4 G/DL (3.4-5.0); ANION GAP 14 (8-16); BLOOD UREA NITROGEN 9 MG/DL (7-18); BUN/CREATININE RATIO 16.7 (10.0-20.0); CHLORIDE 104 MMOL/L (99-107); CREATININE 0.54 MG/DL (0.40-0.90); GLUCOSE 100 MG/DL (70-104); POTASSIUM 3.7 MMOL/L (3.5-5.1); SODIUM 144 MMOL/L (135-145); TOTAL CARBON DIOXIDE 26.1 MMOL/L (24-32); eCRCL 114 ML/MIN; eGFR > 90 ML/MIN
[2023-10-17 18:31] LABS: ETHANOL 386 MG/DL (<10)
[2023-10-17 18:59] LABS: TOTAL CELLS COUNTED 100
[2023-10-17 19:00] LABS: ANISOCYTOSIS 3+; PLATELET ESTIMATE NORMAL; POIKILOCYTOSIS 1+
[2023-10-17 19:01] LABS: HYPOCHROMASIA 1+; TARGET CELLS 1+
[2023-10-17 19:02] LABS: ELLIPTOCYTES FEW
[2023-10-17 19:03] LABS: SCHISTOCYTES FEW
[2023-10-17] MEDS ORDERED: ketorolac trometh inj. 60 MG/2 ML VIAL IM ONE (19:15)
[2023-10-17] MEDS: ondansetron 4mg rapidly disintigrating tab PO ONE (19:24)
[2023-10-17] MEDS: ketorolac tromethamine 15mg/ml inj. IM ONE (19:25)
[2023-10-17 19:32] LABS: LIPASE 107 U/L (16-77)
[2023-10-18] MEDS: HYDROcodone/acetaminophen 5mg/325mg tablet PO ONE ×2 (03:25→14:40)
[2023-10-18] MEDS: ondansetron 4mg rapidly disintigrating tab PO ONE (03:27)
[2023-10-18] MEDS ORDERED: iohexol 300mg/ml 100ml inj. ONE (08:40)
[2023-10-18] MEDS: morphine 4 MG/ML inj SYRINge IV ONE (09:13)
[2023-10-18] MEDS: ondansetron/PF 4mg/2ml inj IV ONE (09:13)
[2023-10-18] MEDS: normal saline 1000ml 1,000 ML IV ONE (09:13)
[2023-10-18 09:23] LABS: BASOPHILS % (AUTO) 2.1 % (0-1); LYMPHOCYTES # (AUTO) 0.7 X10'3 (1.1-4.8); MONOCYTES # (AUTO) 0.3 X10'3 (0-0.9); NEUTROPHILS # (AUTO) 1.1 X10'3 (1.8-7.7); RED BLOOD COUNT 3.56 X10'6 (4.20-5.60); WHITE BLOOD COUNT 2.2 X10'3 (4.5-11.0)
[2023-10-18 09:26] LABS: EOSINOPHILS % (AUTO) 1.7 % (0-6); HEMATOCRIT 30.1 % (35.0-45.0); HEMOGLOBIN 9.4 g/dl (12.0-16.0); LYMPHOCYTES % (AUTO) 31.5 % (21-51); MEAN CORPUSCULAR HEMOGLOBIN 26.5 PG (27.0-31.0); MEAN CORPUSCULAR HGB CONC 31.4 g/dL (33.0-36.5); MEAN CORPUSCULAR VOLUME 84.4 FL (78-98); NEUTROPHILS % (AUTO) 51.7 % (42-75); PLATELET COUNT 143 X10'3 (140-440)
[2023-10-18] MEDS: LORazepam 2 mg/ml vial IV ONE (09:29)
[2023-10-18] MEDS ORDERED: NO HOME MEDS (09:34)
[2023-10-18 09:43] LABS: ALANINE AMINOTRANSFERASE 55 U/L (12-78); ALBUMIN 3.8 G/DL (3.4-5.0); ALBUMIN/GLOBULIN RATIO 1.1 (1.1-1.5); ALKALINE PHOSPHATASE 72 IU/L (46-116); ANION GAP 14 (8-16); ASPARTATE AMINO TRANSFERASE 73 U/L (10-37); BILIRUBIN,TOTAL 0.8 MG/DL (0.1-1.0); BLOOD UREA NITROGEN 13 MG/DL (7-18); BUN/CREATININE RATIO 24.5 (10.0-20.0); CALCIUM 8.5 MG/DL (8.5-10.1); CHLORIDE 100 MMOL/L (99-107); CREATININE 0.53 MG/DL (0.40-0.90); GLUCOSE 65 MG/DL (70-104); POTASSIUM 3.9 MMOL/L (3.5-5.1); SODIUM 139 MMOL/L (135-145); TOTAL CARBON DIOXIDE 24.8 MMOL/L (24-32); TOTAL PROTEIN 7.4 G/DL (6.4-8.2); eCRCL 116 ML/MIN; eGFR > 90 ML/MIN
[2023-10-18 09:45] LABS: LIPASE 45 U/L (16-77)
[2023-10-18 10:14] LABS: ANISOCYTOSIS 3+; MICROCYTOSIS 1+; PLATELET ESTIMATE NORMAL; TOTAL CELLS COUNTED 100
[2023-10-18 10:15] LABS: POIKILOCYTOSIS FEW; STOMATOCYTES 5; TARGET CELLS FEW
[2023-10-18] MEDS: HYDROcodone/acetaminophen 10/325mg tab PO ONE (22:43)
[2023-10-19] MEDS: HYDROcodone/acetaminophen 5mg/325mg tablet PO ONE (08:59)
[2023-10-19] MEDS: magnesium hydroxide 30ml (MOM) UD suspension PO ONE (10:38)
[2023-10-19 11:11] LABS: THYROID STIMULATING HORMONE 1.82 ulU/ml (0.34-4.50)
[2023-10-19] MEDS: ondansetron 4mg rapidly disintigrating tab PO ONE (13:04)
[2023-10-19] MEDS ORDERED: LORazepam 1 MG tablet PO ONE (13:45)
[2023-10-19] MEDS: LORazepam 2 mg/ml vial IM ONE (14:01)
[2023-10-20] MEDS: HYDROcodone/acetaminophen 5mg/325mg tablet PO ONE (01:57)
[2023-10-20] MEDS: LORazepam 1 MG tablet PO ONE (08:26)
[2023-10-20 09:20] VITALS: BP 148/91; PULSE 97; RESP 18; TEMP 98.1; O2SAT 98
== END 2023-10-20 09:30 ==
LOC: ER 16:57
DX: R45.851 Suicidal ideations (principal); F32.A Depression, unspecified; F10.10 Alcohol abuse, uncomplicated; Z20.822 Contact with and (suspected) exposure to COVID-19; Z79.899 Other long term (current) drug therapy; Y90.9 Presence of alcohol in blood, level not specified
CPT/HCPCS: 36415; 80048; 80053; 80305; 80320; 81003; 81025; 83690; 84443; 85007; 85025; 87811; 96372; 96374; 96375; 99285; J2060; J2270; J2405; J7030; Q9967; 96361

== ENCOUNTER 2023-11-10 13:51 | Emergency (ER) | payer MEDICAID ==
[~2023-11-10] VITALS: Ht 167.6 cm; Wt 72.7 kg
[~2023-11-10 13:51] MED LIST changes: -FERR324T4 PO; +NO HOME MEDS; -ONDA4TAB12 PO; -PANT40TA54 PO
[2023-11-10 14:01] VITALS: TEMP 98
[2023-11-10 17:27] LABS: BASOPHILS # (AUTO) 0.1 X10'3 (0-0.2); BASOPHILS % (AUTO) 1.6 % (0-1); EOSINOPHILS # (AUTO) 0.3 X10'3 (0-0.9); EOSINOPHILS % (AUTO) 6.3 % (0-6); HEMATOCRIT 35.7 % (35.0-45.0); HEMOGLOBIN 11.2 g/dl (12.0-16.0); LYMPHOCYTES # (AUTO) 2.7 X10'3 (1.1-4.8); LYMPHOCYTES % (AUTO) 52.2 % (21-51); MEAN CORPUSCULAR HEMOGLOBIN 25.9 PG (27.0-31.0); MEAN CORPUSCULAR HGB CONC 31.4 g/dL (33.0-36.5); MEAN CORPUSCULAR VOLUME 82.6 FL (78-98); MEAN PLATELET VOLUME 8.1 FL (7.4-10.4); MONOCYTES # (AUTO) 0.3 X10'3 (0-0.9); MONOCYTES % (AUTO) 5.5 % (2-12); NEUTROPHILS # (AUTO) 1.8 X10'3 (1.8-7.7); NEUTROPHILS % (AUTO) 34.4 % (42-75); PLATELET COUNT 330 X10'3 (140-440); RED BLOOD COUNT 4.32 X10'6 (4.20-5.60); RED CELL DISTRIBUTION WIDTH 22.4 % (11.5-14.5); WHITE BLOOD COUNT 5.1 X10'3 (4.5-11.0)
[2023-11-10 17:43] LABS: ALANINE AMINOTRANSFERASE 30 U/L (12-78); ALKALINE PHOSPHATASE 66 IU/L (46-116); ANION GAP 14 (8-16); ASPARTATE AMINO TRANSFERASE 33 U/L (10-37); BILIRUBIN,TOTAL 0.2 MG/DL (0.1-1.0); BLOOD UREA NITROGEN 6 MG/DL (7-18); BUN/CREATININE RATIO 8.2 (10.0-20.0); CHLORIDE 105 MMOL/L (99-107); CREATININE 0.73 MG/DL (0.40-0.90); GLUCOSE 107 MG/DL (70-104); POTASSIUM 3.9 MMOL/L (3.5-5.1); SODIUM 143 MMOL/L (135-145); TOTAL CARBON DIOXIDE 23.9 MMOL/L (24-32); TOTAL PROTEIN 8.2 G/DL (6.4-8.2); eCRCL 84 ML/MIN; eGFR 84 ML/MIN
[2023-11-10 17:49] LABS: LIPASE 42 U/L (16-77)
[2023-11-10 17:52] LABS: ETHANOL 389 MG/DL (<10)
[2023-11-10 19:18] LABS: TOTAL CELLS COUNTED 100
[2023-11-10 19:19] LABS: ANISOCYTOSIS 3+; PLATELET ESTIMATE NORMAL; TARGET CELLS FEW
[2023-11-10 19:20] LABS: LARGE PLATELETS FEW; POIKILOCYTOSIS FEW; SCHISTOCYTES FEW
[2023-11-10] MEDS: normal saline 1000ml 1,000 ML IV ONE (19:40)
[2023-11-10] MEDS: chlordiazePOXIDE 25mg capsule PO ONE (19:40)
[2023-11-10] MEDS: ondansetron/PF 4mg/2ml inj IV ONE (19:40)
[2023-11-10] MEDS: metoclopramide 5 mg/ml inj IV ONE (21:55)
[2023-11-10 23:50] VITALS: BP 102/89; PULSE 98; RESP 16; O2SAT 96
== END 2023-11-10 23:54 | disposition home or self-care (01) ==
LOC: ER 13:51
DX: F10.129 Alcohol abuse with intoxication, unspecified (principal); F32.A Depression, unspecified
CPT/HCPCS: 36415; 80053; 80320; 83690; 85007; 85025; 96361; 96374; 96375; 99284; J2405; J2765; J7030

== ENCOUNTER 2023-12-31 14:42 | Emergency (ER) | payer MEDICAID ==
[~2023-12-31] VITALS: Ht 167.6 cm; Wt 75.9 kg
[2023-12-31 16:00] LABS: EOSINOPHILS # (AUTO) 0.1 X10'3 (0-0.9); HEMATOCRIT 38.5 % (35.0-45.0); HEMOGLOBIN 12.7 g/dl (12.0-16.0); LYMPHOCYTES # (AUTO) 1.7 X10'3 (1.1-4.8); MEAN CORPUSCULAR HGB CONC 32.9 g/dL (33.0-36.5); MONOCYTES # (AUTO) 0.3 X10'3 (0-0.9)
[2023-12-31 16:02] LABS: BASOPHILS # (AUTO) 0.1 X10'3 (0-0.2); BASOPHILS % (AUTO) 1.5 % (0-1); EOSINOPHILS % (AUTO) 2.9 % (0-6); LYMPHOCYTES % (AUTO) 35.5 % (21-51); MEAN CORPUSCULAR HEMOGLOBIN 29.9 PG (27.0-31.0); MEAN CORPUSCULAR VOLUME 90.9 FL (78-98); MONOCYTES % (AUTO) 6.6 % (2-12); NEUTROPHILS # (AUTO) 2.6 X10'3 (1.8-7.7); NEUTROPHILS % (AUTO) 53.5 % (42-75); PLATELET COUNT 261 X10'3 (140-440); RED BLOOD COUNT 4.24 X10'6 (4.20-5.60); RED CELL DISTRIBUTION WIDTH 21.9 % (11.5-14.5); WHITE BLOOD COUNT 4.9 X10'3 (4.5-11.0)
[2023-12-31 16:11] LABS: ALANINE AMINOTRANSFERASE 26 U/L (12-78); ALBUMIN 4.1 G/DL (3.4-5.0); ALKALINE PHOSPHATASE 95 IU/L (46-116); AMYLASE 31 U/L (25-115); ANION GAP 14 (8-16); ASPARTATE AMINO TRANSFERASE 25 U/L (10-37); BILIRUBIN,TOTAL 0.2 MG/DL (0.1-1.0); BLOOD UREA NITROGEN 10 MG/DL (7-18); BUN/CREATININE RATIO 16.7 (10.0-20.0); CALCIUM 9.1 MG/DL (8.5-10.1); CHLORIDE 104 MMOL/L (99-107); GLUCOSE 82 MG/DL (70-104); LIPASE 40 U/L (16-77); POTASSIUM 3.7 MMOL/L (3.5-5.1); SODIUM 142 MMOL/L (135-145); TOTAL CARBON DIOXIDE 24.5 MMOL/L (24-32); TOTAL PROTEIN 8.4 G/DL (6.4-8.2); eCRCL 103 ML/MIN; eGFR > 90 ML/MIN
[2023-12-31] MEDS: morphine 4 MG/ML inj SYRINge IV ONE ×2 (18:20→21:16)
[2023-12-31] MEDS: normal saline 1000ml 1,000 ML IV ONE (18:20)
[2023-12-31] MEDS: ondansetron/PF 4mg/2ml inj IV ONE (18:20)
[2023-12-31 18:27] LABS: URINE HCG NEGATIVE (NEG)
[2023-12-31 18:30] LABS: BILIRUBIN,URINE NEGATIVE (Neg); CLARITY,URINE SLIGHTLY CLOUDY (Clear); COLOR,URINE STRAW (Yellow); GLUCOSE, URINE NEGATIVE (Neg); KETONES,URINE NEGATIVE (Neg); LEUKOCYTE ESTERASE ,URINE NEGATIVE (Neg); NITRITES, URINE NEGATIVE (Neg); OCCULT BLOOD,URINE NEGATIVE (Neg); PROTEIN,URINE NEGATIVE (Neg); UROBILINOGEN,URINE 0.2 E.U/dL (0.2-1.0)
[2023-12-31 18:39] LABS: UA COLLECTION TYPE CLN CATCH MIDSTREAM
[2023-12-31 18:49] LABS: BACTERIA,URINE FEW /HPF (Neg); MUCUS STRANDS FEW /LPF (Neg); RBC,URINE 0-2 /HPF (0-2); SQUAMOUS EPITHELIAL CELL,UR MANY /LPF (FEW); TRANSITIONAL EPI CELLS,URINE FEW /HPF; WBC,URINE 0-4 /HPF (0-4)
[2023-12-31 21:31] VITALS: BP 142/87; PULSE 84; RESP 16; TEMP 98.6; O2SAT 96
== END 2023-12-31 21:35 | disposition home or self-care (01) ==
LOC: ER 14:42
DX: R10.13 Epigastric pain (principal); F10.10 Alcohol abuse, uncomplicated; F32.A Depression, unspecified; F41.0 Panic disorder [episodic paroxysmal anxiety]
CPT/HCPCS: 74176; 80053; 81001; 81025; 82150; 83690; 85025; 96361; 96374; 96375; 96376; 99285; J2270; J2405; J7030

== ENCOUNTER 2024-10-27 13:59 | Emergency (ER) | payer MEDICAID ==
[~2024-10-27] VITALS: Ht 167.6 cm; Wt 67.0 kg
[2024-10-27 14:01] VITALS: TEMP 97.6
[2024-10-27 14:45] LABS: EOSINOPHILS # (AUTO) 0.1 X10'3 (0-0.9); EOSINOPHILS % (AUTO) 3.4 % (0-6); HEMATOCRIT 39.3 % (35.0-45.0); HEMOGLOBIN 13.3 g/dl (12.0-16.0); LYMPHOCYTES # (AUTO) 1.5 X10'3 (1.1-4.8); LYMPHOCYTES % (AUTO) 38.3 % (21-51); MEAN CORPUSCULAR HEMOGLOBIN 35.9 PG (27.0-31.0); MEAN CORPUSCULAR HGB CONC 33.9 g/dL (33.0-36.5); MEAN CORPUSCULAR VOLUME 105.7 FL (78-98); MEAN PLATELET VOLUME 9.4 FL (7.4-10.4); MONOCYTES # (AUTO) 0.4 X10'3 (0-0.9); MONOCYTES % (AUTO) 9.8 % (2-12); NEUTROPHILS # (AUTO) 1.8 X10'3 (1.8-7.7); NEUTROPHILS % (AUTO) 47.5 % (42-75); PLATELET COUNT 177 X10'3 (140-440); RED BLOOD COUNT 3.72 X10'6 (4.20-5.60); RED CELL DISTRIBUTION WIDTH 21.4 % (11.5-14.5); WHITE BLOOD COUNT 3.8 X10'3 (4.5-11.0)
[2024-10-27 15:03] LABS: ALANINE AMINOTRANSFERASE 285 U/L (12-78); ALBUMIN 3.9 G/DL (3.4-5.0); ALBUMIN/GLOBULIN RATIO 1.1 (1.1-1.5); ALKALINE PHOSPHATASE 136 IU/L (46-116); ANION GAP 15 (8-16); ASPARTATE AMINO TRANSFERASE 443 U/L (10-37); BLOOD UREA NITROGEN 7 MG/DL (7-18); CALCIUM 8.8 MG/DL (8.5-10.1); CHLORIDE 101 MMOL/L (99-107); CREATININE 0.54 MG/DL (0.40-0.90); GLUCOSE 88 MG/DL (70-104); LIPASE 116 U/L (16-77); POTASSIUM 3.5 MMOL/L (3.5-5.1); SODIUM 139 MMOL/L (135-145); TOTAL CARBON DIOXIDE 23.4 MMOL/L (24-32); TOTAL PROTEIN 7.4 G/DL (6.4-8.2); eCRCL 113 ML/MIN; eGFR > 90 ML/MIN
[2024-10-27 16:14] LABS: BILIRUBIN,URINE NEGATIVE (Neg); CLARITY,URINE CLEAR (Clear); COLOR,URINE YELLOW (Yellow); GLUCOSE, URINE NEGATIVE (Neg); KETONES,URINE NEGATIVE (Neg); LEUKOCYTE ESTERASE ,URINE NEGATIVE (Neg); NITRITES, URINE NEGATIVE (Neg); OCCULT BLOOD,URINE NEGATIVE (Neg); PROTEIN,URINE NEGATIVE (Neg); UROBILINOGEN,URINE 0.2 E.U/dL (0.2-1.0)
[2024-10-27 16:20] LABS: UA COLLECTION TYPE CLN CATCH MIDSTREAM
[2024-10-27 16:27] LABS: URINE HCG NEGATIVE (NEG)
[2024-10-27] MEDS ORDERED: iohexol 300mg/ml 100ml inj. ONE (17:23)
--- NOTE | 2024-10-27 17:39 | Physician Documentation ---
History of Present Illness Chief Complaint: Abdominal Pain w/vomiting Stated Complaint: ABD PAIN Time Seen by MD: 17:13 Primary Medical Doctor: Salvatore Vaz, No REFRACTORY BRICKLAYER HPI Patient arrives from home with complaints of mid upper abdominal pain for the past two weeks that radiates to her right side. Endorses nausea/vomiting, dark urine. History of pancreatitis with chronic alcoholism. Last drink this morning with normal amount. Denies withdrawals. Medication Reconciliation Allergies: Coded Allergies: No Known Allergies (Unverified , 10/27/24) Miscellaneous Medications Home Med List (No Home Medications), (Reported) Past Medical History Past Medical History: Depression, Panic Disorder Past Surgical History: noncontributory Alcohol Use: Abuse Drug Use: none Lives with: Family Lives In: Home Physical Exam Vital Signs: Temperature: 97.6, Source: Temporal, Heart Rate: 96, Respiratory Rate: 15, BP: 163/76, Pulse Oximetry: 98, Weight: 67.000 Progress Results/Orders Results/Orders Orders - TERRY CARRANZA MD Cbc/Diff (10/27/24 14:04) Ct Abdomen Pelvis (10/27/24 17:13) Completed Orders - TERRY CARRANZA MD Urinalysis, Cult If Indicated (10/27/24 14:04) Hcg, Ur Ql (10/27/24 14:04) BMP (10/27/24 14:04) Lipase (10/27/24 14:04) CMP (10/27/24 14:04) Iohexol 300mg/Ml 100ml Inj. (Omnipaque-3 (10/27/24 17:23) Vital Signs 10/27/24 14:01 Temp 97.6 Pulse 96 Resp 15 B/P (MAP) 163/76 Pulse Ox 98 Laboratory Tests Test 10/27/24 14:19 10/27/24 15:55 White Blood Count 3.8 L Red Blood Count 3.72 L Hemoglobin 13.3 Hematocrit 39.3 Mean Corpuscular Volume 105.7 H Mean Corpuscular Hemoglobin 35.9 H Mean Corpuscular Hemoglobin Concent 33.9 Red Cell Distribution Width 21.4 H Platelet Count 177 Mean Platelet Volume 9.4 Neutrophils (%) (Auto) 47.5 Lymphocytes (%) (Auto) 38.3 Monocytes (%) (Auto) 9.8 Eosinophils (%) (Auto) 3.4 Basophils (%) (Auto) 1.0 Neutrophils # (Auto) 1.8 Lymphocytes # (Auto) 1.5 Monocytes # (Auto) 0.4 Eosinophils # (Auto) 0.1 Basophils # (Auto) 0.0 CBC Comment Basophilic Stippling Sodium Level 139 Potassium Level 3.5 Chloride Level 101 Carbon Dioxide Level 23.4 L Anion Gap 15 Blood Urea Nitrogen 7 Creatinine 0.54 Estimated GFR/1.73 m2 > 90 BUN/Creatinine Ratio 13.0 Glucose Level 88 Calcium Level 8.8 Total Bilirubin 1.0 Aspartate Amino Transf (AST/SGOT) 443 H Alanine Aminotransferase (ALT/SGPT) 285 H Alkaline Phosphatase 136 H Total Protein 7.4 Albumin 3.9 Globulin 3.5 Albumin/Globulin Ratio 1.1 Lipase 116 H Chemistry Comments Urine Specimen Description Cln catch midstream Urine Color Yellow Urine Clarity Clear Urine pH 6.0 Urine Specific [place] <=1.005 Urine Protein Negative Urine Glucose (UA) Negative Urine Ketones Negative Urine Occult Blood Negative Urine Nitrite Negative Urine Bilirubin Negative Urine Urobilinogen 0.2 Urine Leukocyte Esterase Negative Urine Culture Indicated Not ind Volume Urine Centrifuged 10 ml Urine HCG, Qualitative Negative Urine Comment Medical Decision Making Findings 54 year old female with history of alcoholism and abdominal pain. IVF and meds. Labs returned significant for transaminitis and elevated lipase suggesting p ancreatitis. CT pending, will sign out to oncoming ER physician for disposition. Dr. Huber: Received care of patient from previous doctor. Patient presented to the emergency room with abdominal pain. CT scan and ultrasound performed which shows fatty liver infiltration and labs suggest pancreatitis. Patient has been seen here previously for pancreatitis and she endorses drinking significant alcohol. No evidence of common bile duct stone. Patient has a long history of alcohol abuse. She states she has been to rehab previously. She states she drinks because of anxiety and I have asked her if she has ever been treated for anxiety she states that she has not. The need to obtain primary care for management of anxiety discussed and she has been instructed to go to [facility] tomorrow to get established. No evidence of withdrawals. No SI/HI. At this time no need for admission as patient's symptoms controlled Differential Dx:Considerations: Include: Appendicitis, Bowel obstruction, Cholelithasis, Constipation, Diverticular disease, Hepatitis, Pancreatitis Departure Impression: Primary Impression: Endometrial mass Additional Impression: Alcoholic pancreatitis Discharge Instructions: Pancreatitis Eating Plan Additional Instructions: there was an abnormality seen in your uterus of indeterminate significance. This could represent cancer and you need to follow up with your doctor for investigation. Follow up with [facility] tomorrow Referrals: NO PRIMARY CARE PROVIDER (PCP) Education Educated: Patient Educated regarding: diagnosis, treatment, need for follow up Additional Comment Additional Comment Care the patient transferred to [place] by Dr. Zhu at approximately 6:30 p.m.. Patient has presented with the abdominal pain and intractable nausea and vomiting for four days. 7:55 p.m.: Patient re-evaluated. She is still having 8/10 pain after Dilaudid. Patient is still nauseated. Fentanyl 100 mcg IV ordered and Compazine 10 mg IV for her nausea. CT scan and ultrasound results are pending. Preliminary report on the ultrasound showed a very fatty liver, sludge in the gallbladder, normal CBD and a thickened gallbladder wall. My suspicion is the patient will require admission for intractable abdominal pain, nausea and vomiting. Cholecystitis is still a possibility. Patient is afebrile and hemodynamically stable. Patient will be given Rocephin 1 g IV. Abdomen and pelvis CT scan, indication: Abdominal pain Impression: Relatively unchanged 1.4 x 1.7 cm heterogeneously enhancing pedunculated mass is seen protruding into the endometrial lumen. Correlation with contrast-enhanced pelvic MRI can be considered to assess for fibroid versus other neoplastic processes. Extensive diffuse hepatic fatty infiltration causing hepatomegaly Small gastric hiatus hernia Limited abdominal ultrasound, indication: Abdominal pain Impression: Signature Scribe Signature: No Scribe Attestation: The note accurately reflects work and decisions made by me.Jose Huber MD 10/27/24 23:05 No radhaibTERRY De Dios MD October 27, 2024 17:39 LAMAR GÓMEZ MD October 27, 2024 20:01 JOSE HUBER MD October 27, 2024 21:31
[2024-10-27] MEDS: ondansetron/PF 4mg/2ml inj IV ONE (18:39)
[2024-10-27] MEDS: normal saline 1000ml 1,000 ML IV ONE (18:39)
[2024-10-27] MEDS: HYDROmorphone 1 mg/ml syringe IV ONE (18:40)
--- NOTE | 2024-10-27 20:14 | RADIOLOGY REPORT ---
Clinical History abdominal pain Comparison None Technique: All CT scans at this medical facility are performed using dose modulation techniques as appropriate t o a performed exam including the following: Automated exposure control was utilized; adjustment of th e mA and/or kV according to patient size; and use of iterative reconstruction technique. All CT studies are reported to the Dose Index Registry of the [employer]. Contrast: omni 300 100ml Radiation Dose: CTDI (mGy): 21.2; DLP (mGy-cm): 1042.53 FANNY JUSTIN, [id number] Comparison: 10/18/23 FINDINGS: Lower chest: Unremarkable Liver: Extensive diffuse hepatic fatty infiltration causing hepatomegaly Gallbladder: Unremarkable Pancreas: Diffuse pancreatic atrophy Spleen: Unremarkable Adrenals:Unremarkable Kidneys: Tiny bilateral cortical cysts. No calcified nephroureterolithiasis or hydroureteronephrosis. Stomach: Small gastric hiatus hernia. Bowel:Unremarkable. Normal appendix Urinary bladder:Unremarkable Reproductive organs: 1.4 x 1.7 cm heterogeneously enhancing pedunculated mass is seen protruding into the endometrial lumen. 8.6 mm subendometrial calcification which could represent a fibroid Peritoneum, retroperitoneum, lymphadenopathy:Unremarkable Vascular structures:Unremarkable Abdominal wall:Unremarkable Musculoskeletal:No acute osseous abnormality IMPRESSION: Relatively unchanged 1.4 x 1.7 cm heterogeneously enhancing pedunculated mass is seen protruding into the endometrial lumen. Correlation with contrast-enhanced pelvic MRI can be considered to assess fo r fibroid versus other neoplastic processes. Extensive diffuse hepatic fatty infiltration causing hepatomegaly Small gastric hiatus hernia This report was electronically signed by Sarah Sandoval MD on 10/27/2024 8:11:37 PM.
[2024-10-27] MEDS: proCHLORperazine 10 MG/2 ml inj IV ONE (20:27)
[2024-10-27] MEDS: fentaNYL/PF 50MCG/1 ML 2ML syringe IV ONE (20:31)
[2024-10-27] MEDS: CefTRIAXone 2gm/D5W 50ml BAG 50 ML IV ONE ×2 (20:32→20:59)
[2024-10-27] MEDS ORDERED: diphenhydrAMINE 50 mg/ml inj IV ONE (21:50)
[2024-10-27] MEDS: LORazepam 1 MG tablet PO ONE ×2 (21:58→23:38)
--- NOTE | 2024-10-27 22:38 | RADIOLOGY REPORT ---
Clinical History transaminitis, elevated lipase Comparison Ct abd/pelvis on 10/27/2024, 385 images. Without Contrast FANNY JUSTIN, [id number] Technique: Limited right upper abdominal quadrant ultrasound was performed. Interpretation of the ultrasound ex am is solely based on the sonographic images submitted by the on-site principal secretary. The radiologist w as not present on site and did not scan the patient to confirm findings. Findings: Liver: Diffuse increased hepatic echogenicity consistent with fatty infiltration causing hepatomegaly . The liver measures 18.6 cm. Hepatopedal portal vein flow Gallbladder: Unremarkable CBD: 4 mm Pancreas: Diffuse pancreatic atrophy Right kidney: It measures 10.6 x 4.7 x 6 cm. No shadowing calculi. No hydronephrosis Impression: Extensive diffuse hepatic fatty infiltration causing hepatomegaly. Unremarkable gallbladder This report was electronically signed by Sarah Sandoval MD on 10/27/2024 10:36:08 PM.
[2024-10-27 23:39] LABS: ANISOCYTOSIS 3+; PLATELET ESTIMATE NORMAL
[2024-10-27] MEDS: normal saline 1000ML IV soln IVB ONE (23:39)
[2024-10-28 01:40] VITALS: BP 123/74; PULSE 82; RESP 16; O2SAT 99
== END 2024-10-28 01:48 | disposition home or self-care (01) ==
LOC: ER 14:00
DX: R19.00 Intra-abdominal and pelvic swelling, mass and lump, unspecified site (principal); K86.0 Alcohol-induced chronic pancreatitis
CPT/HCPCS: 36415; 74177; 76700; 80053; 81003; 81025; 83690; 85025; 96361; 96365; 96375; 99285; J0696; J0780; J1171; J2405; J3010; J7030; Q9967; 85008